=== PATIENT | male | born 1930 | race Caucasian/White ===

== ENCOUNTER 2016-06-29 11:45 | Inpatient (IN) | payer MEDICARE ==
[2016-06-29 12:24] LABS: Hematocrit 44 % (42-52); Hemoglobin 15.1 g/dl (14.0-18.0); Mean Corpuscular HGB Conc 34 g/dl (31-36); Mean Corpuscular Hemoglobin 34 pg (27-31); Mean Corpuscular Volume 99 fL (80-94); Mean Platelet Volume 7 um3 (7.4-10.4); Red Blood Count 4.44 10^6/ul (4.0-5.4); Red Cell Distribution Width 14 % (10.5-15); White Blood Count 9.6 10^3/ul (3.5-10.8)
[2016-06-29 12:41] LABS: Albumin 4.2 g/dL (3.2-5.2); BUN/Creatinine Ratio 17.6 (8-20); Calcium 9.7 mg/dL (8.6-10.3); EGFR African American 83.2 (>60); EGFR Non-African American 64.7 (>60); Globulin 3.4 g/dL (2-4); Potassium 4.4 mmol/L (3.5-5.0); Total Bilirubin 1.7 mg/dL (0.2-1.0); Total Protein 7.6 g/dL (6.4-8.9)
[2016-06-29 12:43] LABS: Troponin I 0.01 ng/mL (<0.04)
--- NOTE | 2016-06-29 13:57 | RAD ---
Indication: Fall. Chest injury. Single view of the chest demonstrates patient to be status post transsternal thoracotomy. Lung best demonstrate no pleural fluid, pneumonia or pneumothorax. When compared to previous exam of August 08, 2015 postoperative changes are new. The lung best are unchanged. IMPRESSION: No active cardiopulmonary disease is noted.
--- NOTE | 2016-06-29 13:59 | RAD ---
Indication: Fall, right hip pain. 2 views of the right hip and an AP view the pelvis demonstrates a fracture through the neck of the right femoral neck. Overriding of the fracture fragment is noted. Pelvic ring is otherwise intact. IMPRESSION: Impacted fracture right femoral neck.
[2016-06-29 14:35] LABS: Urine Bacteria Absent (Absent); Urine Bilirubin Negative (Negative); Urine Glucose Negative (Negative); Urine Nitrite Negative (Negative)
--- NOTE | 2016-06-29 14:58 | PN ---
Progress Note - Progress Note Note: Full note dictated. Right displaced femoral neck fracture. He is 85 and walks with a walker for the last 6 months. He takes Xarelto for A fib. We have to wait at least 24 hours for the Xarelto to clear his system. We will arrange for right hip hemiarthroplasty or total hip arthroplasty once cleared medically.
[2016-06-29] MEDS: Sotalol TAB* 80 MG PO SCH (17:37)
[2016-06-29] MEDS ORDERED: Latanoprost 0.005%* 2.5 ml BTL BOTH EYES SCH (18:00)
--- NOTE | 2016-06-29 18:03 | ED ---
Mandeep Mehta Michael, scribed for Bigg Hernadez MD on 06/29/16 at 1222 . Adult Trauma - HPI Summary HPI Summary: 85 y/o male comes to the ED presenting with right hip pain after slipping on ice while brushing the snow off his car today at 0945. The pt reports that he fell on his right hip and was unable to get up after the fall because the pain was so severe. Currently at the ED, the pt rates the pain a 2 out of 10 without movement. With movement, the pain is rated a 4 out of 10 on a pain severity scale. The right hip pain does not radiate. The pt denies head pain, neck pain, and LOC. The PMHx is significant for GERD, HTN, and A-fib. - History of Current Complaint Chief Complaint: EDExtremityLower Stated Complaint: FALL Time Seen by Provider: 06/29/16 11:51 Hx Obtained From: Patient, Medical Records Mechanism of Injury: Fall Loss of Consciousness: no loss of consciousness Onset/Duration: Started Hours Ago, Still Present Onset of Pain: Immediate Onset Severity: Moderate Current Severity: Mild Pain Intensity: 1 Pain Scale Used: 0-10 Numeric Location: Extremities - right hip pain Aggravating Factor(s): Movement Associated Signs & Symptoms: Positive: Negative. Negative: Loss of Consciousness - head and neck trauma - Additional Pertinent History Primary Care Physician: DIVYA - Allergy/Home Medications Allergies/Adverse Reactions: Allergies Allergy/AdvReac Type Severity Reaction Status Date / Time Tetracyclines & Related Allergy Unknown Verified 06/29/16 14:19 Reaction Details Home Medications: Home Medications Bimatoprost 0.01% OPHTH (NF) [Lumigan 0.01% OPHTH (NF)] 1 drop BOTH EYES QPM 04/05 [History Confirmed 06/29/16] Sotalol TAB* [Betapace 80 MG TAB*] 40 mg PO BID 06/29/16 [History Confirmed 04/05] PMH/Surg Hx/FS Hx/Imm Hx Endocrine/Hematology History: Reports: Other Endocrine/Hematological Disorders - Pt reports Hx of Rheumatoid arthritis for two years, then dismissed Cardiovascular History: Reports: Hx Atrial Fibrillation, Hx Congestive Heart Failure, Hx Hypertension - on meds Respiratory History: Reports: Hx Pneumonia - 5 years ago Denies: Hx Asthma, Hx Chronic Obstructive Pulmonary Disease (COPD) GI History: Reports: Hx Gastroesophageal Reflux Disease History: Reports: Other Problems/Disorders - BPH Musculoskeletal History: Reports: Hx Orthopedic Injury - R ankle Sensory History: Reports: Hx Contacts or Glasses, Hx Glaucoma Opthamlomology History: Reports: Hx Contacts or Glasses, Hx Glaucoma - Surgical History Surgery Procedure, Year, and Place: "Kidney lesions removed when I was very young", bilateral carpal tunnel, arthroscopy, tonsillectomy, dental surgeries Hx Anesthesia Reactions: No Infectious Disease History: No Infectious Disease History: Denies: Traveled Outside the [place] in Last 30 Days - Family History Known Family History: Positive: None Family History: pt denies significant FHx - Social History Occupation: Retired Lives: With Family Alcohol Use: None Substance Use Type: Reports: None Smoking Status (MU): Never Smoked Tobacco Review of Systems Negative: Fever Positive: Other - right hip pain Negative: Syncope All Other Systems Reviewed And Are Negative: Yes Physical Exam - Summary Physical Exam Summary: Vital signs: reviewed General: Patient is comfortable lying in stretcher with no signs of distress HEENT: within normal limits Lungs: CTA B/L CVS: S1 & S2 present. No murmurs appreciated. ABDOMEN: Soft, non-tender. No signs of distention. No rebound no guarding, and no masses palpated. Bowel sounds are normal. EXTREMITIES: Decrease ROM of right hip secondary to pain, good pulses and capillary refill. NEURO: Alert and oriented x 3. No acute neurological deficits. Speech is normal and follows commands. SKIN: Dry and warm Triage Information Reviewed: Yes Vital Signs On Initial Exam: Initial Vitals Temp Pulse Resp BP Pulse Ox 97.7 F 69 16 160/82 94 06/29/16 11:46 06/29/16 11:46 06/29/16 11:46 06/29/16 11:46 06/29/16 11:46 Vital Signs Reviewed: Yes Diagnostics - Vital Signs Vital Signs Temp Pulse Resp BP Pulse Ox 06/29/16 11:46 97.7 F 69 16 160/82 94 - Laboratory Result Diagrams: 06/29/16 12:14 06/29/16 12:14 Lab Statement: Any lab studies that have been ordered have been reviewed, and results considered in the medical decision making process. - Radiology CXR Xray Interpretation: No Acute Changes Radiology Interpretation Completed By: Radiologist Right hip/pelvis XR Xray Interpretation: Positive (See Comments) - compacted fracture right femoral neck Radiology Interpretation Completed By: Radiologist - EKG EK EKG Rhythm: Sinus Rhythm - 84 bpm EKG Interpretation: no st elevation EKG 1248 EKG Rhythm: Sinus Rhythm EKG Interpretation: no st elevation Adult Trauma Course/Dx - Course Course Of Treatment: 85 y/o male comes to the ED presenting with right hip pain after slipping on ice while brushing the snow off his car today at 0945. The pt reports that he fell on his right hip and was unable to get up after the fall because the pain was so severe. Currently at the ED, the pt rates the pain a 2 out of 10 without movement. With movement, the pain is rated a 4 out of 10 on a pain severity scale. The right hip pain does not radiate. The pt denies head pain, neck pain, and LOC. The PMHx is significant for GERD, HTN, and A-fib. Blood work is within normal limits and showed INR 1.22 and sodium 127. The XR of the right hip and pelvis shows right femoral neck fracture. CXR shows no active cardiopulmonary disease. The EKG shows NSR with no st elevation. The patient has become comfortable with no pain due to medication. Dr. Monroy ( orthopedics) was contacted and Dr. Monroy will consult the patient. Dr. Varner (Hospitalist) was consulted and accepts the patient to the hospital. - Diagnoses Differential Diagnosis/HQI/PQRI: Positive: Fracture, Laceration(s), Sprain, Strain Provider Diagnoses: Fracture of femoral neck, right Discharge - Discharge Plan Condition: Stable Disposition: ADMITTED TO [facility] Discharge Disposition Comment: Dr. Varner accepts the patient as an admission The documentation as recorded by the Mandeep trevino Michael accurately reflects the service I personally performed and the decisions made by me, Bigg Hernadez MD.
[2016-06-29] MEDS: Acetaminophen TAB* 325 MG PO SCH (20:46)
[2016-06-29] MEDS: PRESERVISION AREDS PO SCH (20:46)
[2016-06-29] MEDS: PTO:Bimatoprost 0.01% OPHTH (NF) 2.5 ML BTL BOTH EYES SCH (20:47)
[2016-06-29] MEDS ORDERED: Omeprazole CAP* 20 MG PO SCH (21:00)
[2016-06-29] MEDS: Heparin VIAL(*) 5000 UNITS/ML VIAL (FIVE THOUSAND) SUBCUT SCH (21:52)
[2016-06-29] MEDS: oxyCODONE TAB* 5 MG TAB PO PRN (21:56)
--- NOTE | 2016-06-29 22:12 | HP ---
HOSPITAL MEDICINE HISTORY AND PHYSICAL: DATE OF ADMISSION: 06/29/16 PRIMARY CARE PHYSICIAN: Dr. Luis. ATTENDING PHYSICIAN: Dr. Bharath Varner* (dictation provided by Yanira Corey NP) . CHIEF COMPLAINT: Fall with right hip pain. HISTORY OF PRESENT ILLNESS: Mr. Rodríguez is an 85-year-old male with a past medical history of AFib/flutter with aortic stenosis, status post aortic valve replacement in August of last year as well as osteoarthritis who presents today to the hospital with concern for right hip pain after a fall. The patient states that he was out brushing the snow off the car when he slipped on ice on his right hip and had severe pain. He called his son who came to get him. He was able to get him into the car and arrived in to the emergency room. Mr. Rodríguez states that prior to this fall, he had been in his normal state of health. He has had no acute complaints other than problems with arthritis and intermittent pain in his joints. He denies fevers, chills, chest pain, shortness of breath, cough, nausea, vomiting, or diarrhea. In the emergency room, Mr. Rodríguez was confirmed to have an impacted fracture of the right femoral neck. His lab values are essentially unremarkable with a chronic hyponatremia, was essentially unchanged. PAST MEDICAL HISTORY: 1. Atrial fibrillation/flutter. 2. Aortic stenosis, status post aortic valve replacement in August 2015, bioprosthetic valve. 3. Osteoarthritis. 4. Previous question of rheumatoid arthritis, ruled out. 5. Hypertension. 6. Surgery for kidney adhesions decades ago. MEDICATIONS: 1. Bimatoprost 0.01% ophthalmically both eyes q.p.m. 2. Diltiazem 240 mg p.o. daily. 3. Furosemide 20 mg p.o. daily. 4. Potassium chloride 10 mEq p.o. daily. 5. Rivaroxaban 15 mg p.o. daily. 6. Zoloft 40 mg p.o. b.i.d. ALLERGIES: TETRACYCLINES and related. FAMILY HISTORY: No report of coronary artery disease, diabetes, or cancer in the family. He does have a daughter who has diabetes, but he states that that runs in the 's side of the family. SOCIAL HISTORY: No report of tobacco or drug use. The patient states he drinks wine occasionally. 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 He is . He has 4 children. His healthcare proxy would be his son, Bakari Rodríguez. REVIEW OF SYSTEMS: The patient reports having upper respiratory infection about a week ago, but states he is completely recovered from that. He does have chronic pain in his shoulders and ankles from arthritis, but a 14-point review of systems was otherwise performed and all those not mentioned were negative. PHYSICAL EXAMINATION GENERAL: Mr. Rodríguez is lying in the bed. He is in no acute distress. He is calm and cooperative with my examination. VITAL SIGNS: Temperature 97.8, pulse rate 82, respiratory rate 20, O2 saturation 93% on room air, blood pressure 162/71. LUNGS: Clear to auscultation bilaterally with no accessory muscle use and good aeration. HEART: S1, S2. No murmur, rub, or gallop and regular. ABDOMEN: Soft, nontender with bowel sounds positive x4. EXTREMITIES: No cyanosis or edema. NEUROLOGIC: He is alert and oriented x3. He moves all extremities equally. There is no facial asymmetry or focal weakness. Extraocular movements are intact. SKIN: Intact. LABORATORY DATA AND DIAGNOSTIC STUDIES: WBC 9.6, hemoglobin 15.1, hematocrit 44, platelet count 134. INR 1.22. Sodium 127, potassium 4.4, chloride 91, serum bicarbonate 29, BUN 19, creatinine 1.08, glucose 82. Troponin 0.01. Urine shows no evidence of infection. Hip pelvis x-ray is as read as above and chest x-ray shows the following: "No active cardiopulmonary disease is noted." ASSESSMENT: Mr. Rodríguez is an 85-year-old male with a past medical history of atrial fibrillation with aortic stenosis and valve replacement with a bioprosthetic valve in August 2015 who presents today to the hospital with concern for right hip fracture after a mechanical fall. Our plan is as follows: 1. Right hip fracture: Management will be per Orthopedics. Dr. Monroy has been consulted. The patient is on Xarelto and will need at least 24 hours before he could go to the OR after being off Xarelto. According to Dr. Monroy, the patient may go to the OR as late as Thursday. Family indicates that they are considering asking to have Dr. Ramirez do the surgery as they were very happy with the surgery that she did for the patient's . I told them that they need to make sure to let the orthopedic team know that as soon as possible if that is their decision. In terms of cardiac risk stratification, according to the revised cardiac risk index for preoperative risk assessment, the patient has no risk factors and is 0.4% risk of major cardiac event. The patient states he is able to obtain 4 METS of activity, i.e., going about flight of stairs with carrying a bag of groceries without chest pain or shortness of breath. He says overall his activity is limited by arthritis and he gets around with a cane. The patient had a recent echocardiogram through Dr. Nick 's office and actually had cardiac catheterization in August prior to his aortic valve surgery. The patient states there was no significant coronary artery disease identified and no stent placed. From my perspective, the patient has no indication for further cardiac testing. 2. Atrial fibrillation/flutter: Plan to continue sotalol. Plan to hold Xarelto. Continue diltiazem. 3. Hypertension: Continue with diltiazem, furosemide, and potassium supplementation. 4. DVT prophylaxis with heparin subcu. 5. Code status is full code and this was reviewed with the patient at the bedside. 6. Disposition to surgical floor. TIME SPENT: Approximately 60 minutes were spent on the admission of this patient, more than half time spent with him at the bedside reviewing the events leading up to this hospitalization, performing the physical examination, and reviewing my plan of care. YANIRA COREY NP CC: Dr. Luis * [id number]/[facility] #: [id number] DAVID
[2016-06-30] MEDS: Heparin VIAL(*) 5000 UNITS/ML VIAL (FIVE THOUSAND) SUBCUT SCH ×2 (06:10→14:00)
--- NOTE | 2016-06-30 07:00 | PN ---
Progress Note - Progress Note Note: No changes. Surgery possibly tomorrow
[2016-06-30] MEDS: oxyCODONE TAB* 5 MG TAB PO PRN (07:09)
[2016-06-30] MEDS: Acetaminophen TAB* 325 MG PO SCH ×2 (07:10→21:14)
[2016-06-30 07:15] LABS: BUN/Creatinine Ratio 20.5 (8-20); Calcium 9.1 mg/dL (8.6-10.3); EGFR African American 105.4 (>60); EGFR Non-African American 81.9 (>60); Potassium 4.1 mmol/L (3.5-5.0)
[2016-06-30] MEDS: Sotalol TAB* 80 MG PO SCH ×2 (08:44→17:01)
[2016-06-30] MEDS: Potassium Chlor TAB* 10 MEQ TAB.ER PO SCH (08:45)
[2016-06-30] MEDS: Furosemide TAB* 20 MG PO SCH (08:45)
[2016-06-30] MEDS: Diltiazem CD CAP* 240 MG PO SCH (08:46)
[2016-06-30] MEDS: PRESERVISION AREDS PO SCH ×2 (08:46→21:14)
[2016-06-30] MEDS ORDERED: Ferrous Sulfate TAB* 325 MG PO SCH (09:00)
[2016-06-30] MEDS ORDERED: Rivaroxaban TAB(*) 15 MG PO SCH (09:00)
[2016-06-30] MEDS ORDERED: Amiodarone TAB* 200 MG PO SCH (09:00)
--- NOTE | 2016-06-30 09:17 | CONS ---
CONSULTATION REPORT: DATE OF CONSULT: 06/29/16 CHIEF COMPLAINT: Right hip fracture. HISTORY OF PRESENT ILLNESS: Mr. López is an 85-year-old male who has AFib and aflutter, is status post aortic valve replacement in August of last year. He had a mechanical fall when he was brushing the snow off his car and fractured his right hip on 06/29/16. I was consulted for the right hip fracture. Prior to the fall, he has been walking with a walker for the last 6 months. He states he just is a little bit more steady on his feet with the walker. He states he could use a cane. He says he gets some soreness in the right hip and has some pain in the left hip. PAST MEDICAL HISTORY: 1. AFib/flutter. 2. Aortic stenosis, status post aortic valve replacement in August 2015 with a bioprosthetic valve. 3. Osteoarthritis. 4. Hypertension. 5. Status post kidney surgery. MEDICATIONS: 1. Bimatoprost. 2. Diltiazem. 3. Furosemide. 4. Potassium chloride. 6. Rivaroxaban. 7. Zoloft. ALLERGIES: TETRACYCLINES. FAMILY HISTORY: Noncontributory. SOCIAL HISTORY: He does not smoke. He drinks an occasional glass of wine. 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 He lives independently. REVIEW OF SYSTEMS: He had an upper respiratory infection about a week ago and has new onset of right hip pain as well as some bilateral hip soreness prior to the fall. He has chronic pain in his shoulders and ankles. Otherwise a full 14 -point review of systems was conducted and was negative. PHYSICAL EXAM: General: Awake, alert, and oriented. Psych: Mood and affect are normal. HEENT: Normocephalic, atraumatic. Normal facies. Neck: Supple. Good range of motion. Abdomen: Soft and nondistended. Neurological: He has intact neurological function distally on the affected right leg. Neurological exam is grossly normal. Skin: Intact. No bleeding about the fracture site whatsoever. Extremities: The right lower extremity is shortened and externally rotated. Secondary survey of the other arms and other leg show no significant discomfort. The pelvis is stable. The knee and ankle on the right leg are without significant abnormality. DIAGNOSTIC STUDIES/LAB DATA: Imaging: X-rays show a displaced right femoral neck fracture that is in varus. H and H is 15 and 44, INR is 121.22. Sodium is 127, creatinine is 1.08. IMPRESSION: Right displaced femoral neck fracture. PLAN: His Xarelto is being held. We will plan for operative treatment for the fracture in the form of either a right hip hemiarthroplasty or a total hip arthroplasty. We will wait a little bit more time just to have the Xarelto wear off a bit more, and then we will proceed with surgery, either myself or one of my partners. [id number]/[facility] #: [id number] MTDD
--- NOTE | 2016-06-30 09:24 | PN ---
Subjective Date of Service: 06/30/16 Interval History: Patient seen and examined at bedside. He reports having no pain and feels "dopey " from his oxycodone. He denies CP, SOB, abd pain, n/v. He is hopeful to have surgery tomorrow. No other complaints at this time. Family History: Unchanged from Admission Social History: Unchanged from Admission Past Medical History: Unchanged from Admission Objective Active Medications: Acetaminophen (Tylenol Tab*) 975 mg PO BID [facility] Last Admin: 06/30/16 07:10 Dose: 650 mg Bimatoprost (Lumigan 0.01% Ophth (Nf)) 1 drop BOTH EYES QPM [facility] Last Admin: 06/29/16 20:47 Dose: 1 drop Diltiazem HCl (Cardizem Cd Cap*) 240 mg PO DAILY [facility] Last Admin: 06/30/16 08:46 Dose: 240 mg Furosemide (Lasix Tab*) 20 mg PO DAILY [facility] Last Admin: 06/30/16 08:45 Dose: 20 mg Heparin Sodium (Porcine) (Heparin Vial(*)) 5,000 units SUBCUT Q8HR [facility] Last Admin: 06/30/16 06:10 Dose: 5,000 units Multivitamins/Minerals (Preservision Areds(Multivitamins/Mineral)(Nf)) 1 cap PO BID [facility] Last Admin: 06/30/16 08:46 Dose: 1 cap Oxycodone HCl (Roxycodone Tab*) 5 mg PO Q4H PRN PRN Reason: PAIN Last Admin: 06/30/16 07:09 Dose: 5 mg Potassium Chloride (Klor Con Er Tab*) 10 meq PO DAILY [facility] Last Admin: 06/30/16 08:45 Dose: 10 meq Sotalol HCl (Betapace Tab*) 40 mg PO 0900,1700 [facility] Last Admin: 06/30/16 08:44 Dose: 40 mg Tramadol HCl (Ultram*) 100 mg PO Q6H PRN PRN Reason: PAIN Vital Signs 06/29/16 06/29/16 06/29/16 14:28 14:30 16:10 Temperature 99.0 F Pulse Rate 50 83 89 Respiratory 16 14 16 Rate Blood Pressure 152/81 149/74 132/78 (mmHg) O2 Sat by Pulse 90 96 Oximetry 06/29/16 06/29/16 06/29/16 16:15 16:23 16:46 Temperature 97.8 F 97.8 F Pulse Rate 82 82 Respiratory 20 20 20 Rate Blood Pressure 162/71 162/71 (mmHg) O2 Sat by Pulse 93 93 Oximetry 06/29/16 06/29/16 06/29/16 19:20 19:48 21:56 Temperature 97.8 F Pulse Rate 82 Respiratory 20 20 20 Rate Blood Pressure 145/76 (mmHg) O2 Sat by Pulse 97 Oximetry 06/29/16 06/30/16 06/30/16 23:56 00:25 03:40 Temperature 97.6 F 97.9 F Pulse Rate 77 82 Respiratory 20 16 16 Rate Blood Pressure 112/57 125/65 (mmHg) O2 Sat by Pulse 94 93 Oximetry 06/30/16 06/30/16 06/30/16 07:09 07:24 08:00 Temperature 98.0 F Pulse Rate 67 Respiratory 16 17 18 Rate Blood Pressure 142/72 (mmHg) O2 Sat by Pulse 94 Oximetry Oxygen Devices in Use Now: None Appearance: Older male patient, lying in bed, in NAD Eyes: PERRLA Ears/Nose/Mouth/Throat: Clear Oropharnyx, Mucous Membranes Moist Neck: NL Appearance and Movements; NL JVP Respiratory: Symmetrical Chest Expansion and Respiratory Effort, Clear to Auscultation Cardiovascular: NL Sounds; No Murmurs; No JVD, RRR Abdominal: NL Sounds; No Tenderness; No Distention Extremities: No Edema, - - distal pulses intact bilterally with good movement/ sensation Skin: No Rash or Ulcers Neurological: Alert and Oriented x 3 Lines/Tubes/Other Access: Clean, Dry and Intact Peripheral IV Nutrition: Taking PO's Result Diagrams: 06/29/16 12:14 06/30/16 06:39 Assess/Plan/Problems-Billing Assessment: Mr. Rodríguez is an 85 yo male with a PMH of atrial fibrillation, s/p bioprosthetic aortic valve replacement, OA, and HTN who presented to the ED on s/p fall and subsequent right hip fracture. - Patient Problems (1) Fracture of femoral neck, right Code(s): S72.001A - FRACTURE OF UNSP PART OF NECK OF RIGHT FEMUR, INIT Comment : Potential surgery tomorrow per ortho notes Pre-operative risk analysis in H&P Continue DVT prophylaxis and encourage IS Pain management (2) Atrial fibrillation Code(s): I48.91 - UNSPECIFIED ATRIAL FIBRILLATION Comment: Continue sotalol and diltiazem. Hold Xarelto in anticipation of surgery. (3) Hypertension Code(s): I10 - ESSENTIAL (PRIMARY) HYPERTENSION Comment: Continue diltiazem, furosemide, and K+ replacement. (4) S/P aortic valve replacement Code(s): Z95.2 - PRESENCE OF PROSTHETIC HEART VALVE Comment: In August 2015 (5) DVT prophylaxis Code(s): EPH0868 - Comment: SQ heparin Status and Disposition: Inpatient admission. Anticipate LOS >2 days.
[2016-06-30] MEDS ORDERED: NS 0.9% 1000 ML* 1,000 ML IV SCH (15:30)
[2016-06-30 15:46] LABS: Hematocrit 42 % (42-52); Hemoglobin 14.2 g/dl (14.0-18.0)
[2016-06-30 15:47] LABS: Comments Flag Yes
[2016-06-30] MEDS: PTO:Bimatoprost 0.01% OPHTH (NF) 2.5 ML BTL BOTH EYES SCH (17:01)
[2016-06-30] MEDS: traMADol TAB* 50 MG PO PRN ×2 (19:06→19:09)
[2016-06-30] MEDS ORDERED: Buffered Lidocaine 1% SYR 3ML* 3 ML/SYR SYRINGE INTRADERM ONE (21:25)
[2016-07-01] MEDS: traMADol TAB* 50 MG PO PRN (03:23)
[2016-07-01 07:04] LABS: BUN/Creatinine Ratio 20.8 (8-20); Calcium 8.4 mg/dL (8.6-10.3); EGFR African American 132.8 (>60); EGFR Non-African American 103.3 (>60); Potassium 3.8 mmol/L (3.5-5.0)
[2016-07-01] MEDS: Sotalol TAB* 80 MG PO SCH ×2 (08:41→17:30)
[2016-07-01] MEDS: Diltiazem CD CAP* 240 MG PO SCH (08:42)
[2016-07-01] MEDS: PRESERVISION AREDS PO SCH ×2 (08:43→21:30)
[2016-07-01] MEDS: Potassium Chlor TAB* 10 MEQ TAB.ER PO SCH (08:43)
--- NOTE | 2016-07-01 09:10 | PN ---
Subjective Date of Service: 07/01/16 Interval History: Pt is seen in pre op area. no complaints. Ready for surgery Family History: Unchanged from Admission Social History: Unchanged from Admission Past Medical History: Unchanged from Admission Objective Active Medications: Acetaminophen (Tylenol Tab*) 975 mg PO BID [facility] Last Admin: 06/30/16 21:14 Dose: 975 mg Bimatoprost (Lumigan 0.01% Ophth (Nf)) 1 drop BOTH EYES QPM [facility] Last Admin: 06/30/16 17:01 Dose: 1 drop Diltiazem HCl (Cardizem Cd Cap*) 240 mg PO DAILY [facility] Last Admin: 07/01/16 08:42 Dose: 240 mg Furosemide (Lasix Tab*) 20 mg PO DAILY [facility] Last Admin: 06/30/16 08:45 Dose: 20 mg Lactated Ringer's (Lactated Ringers 1000 Ml Bag*) 1,000 mls @ 125 mls/hr IV PER RATE [facility] Last Admin: 07/01/16 05:15 Dose: 125 mls/hr Multivitamins/Minerals (Preservision Areds(Multivitamins/Mineral)(Nf)) 1 cap PO BID [facility] Last Admin: 07/01/16 08:43 Dose: 1 cap Oxycodone HCl (Roxycodone Tab*) 5 mg PO Q4H PRN PRN Reason: PAIN Last Admin: 06/30/16 07:09 Dose: 5 mg Potassium Chloride (Klor Con Er Tab*) 10 meq PO DAILY [facility] Last Admin: 07/01/16 08:43 Dose: 10 meq Sotalol HCl (Betapace Tab*) 40 mg PO 0900,1700 [facility] Last Admin: 07/01/16 08:41 Dose: 40 mg Tramadol HCl (Ultram*) 100 mg PO Q6H PRN PRN Reason: PAIN Last Admin: 07/01/16 03:23 Dose: 50 mg Vital Signs 06/30/16 06/30/16 06/30/16 09:09 11:44 15:28 Temperature 97.6 F 99.1 F Pulse Rate 79 85 Respiratory 16 17 16 Rate Blood Pressure 122/52 153/77 (mmHg) O2 Sat by Pulse 95 94 Oximetry 06/30/16 06/30/16 06/30/16 19:09 19:25 20:00 Temperature 98.9 F Pulse Rate 92 Respiratory 16 20 20 Rate Blood Pressure 139/68 (mmHg) O2 Sat by Pulse 93 Oximetry 06/30/16 07/01/16 07/01/16 21:09 00:08 03:23 Temperature 98.4 F 98.1 F Pulse Rate 78 74 Respiratory 20 16 16 Rate Blood Pressure 129/55 117/55 (mmHg) O2 Sat by Pulse 93 94 Oximetry 07/01/16 07/01/16 05:23 07:26 Temperature 98.0 F Pulse Rate 74 Respiratory 16 18 Rate Blood Pressure 134/63 (mmHg) O2 Sat by Pulse 94 Oximetry Oxygen Devices in Use Now: None Appearance: 85 yo M in NAD, AAOx3 Eyes: No Scleral Icterus, PERRLA Ears/Nose/Mouth/Throat: NL Teeth, Lips, Gums, Mucous Membranes Moist Neck: NL Appearance and Movements; NL JVP, Trachea Midline Respiratory: Symmetrical Chest Expansion and Respiratory Effort, Clear to Auscultation Cardiovascular: NL Sounds; No Murmurs; No JVD, RRR Abdominal: NL Sounds; No Tenderness; No Distention, No Hepatosplenomegaly Lymphatic: No Cervical Adenopathy Extremities: No Edema, No Clubbing, Cyanosis Skin: No Rash or Ulcers, No Nodules or Sclerosis Neurological: Alert and Oriented x 3, NL Muscle Strength and Tone Result Diagrams: 06/30/16 15:40 07/01/16 05:52 Assess/Plan/Problems-Billing Assessment: Mr. Rodríguez is an 85 yo male with a PMH of atrial fibrillation, s/p bioprosthetic aortic valve replacement, OA, and HTN who presented to the ED on s/p fall and subsequent right hip fracture. - Patient Problems (1) Fracture of femoral neck, right Comment: Pre-operative risk analysis in H&P. Pt has good exercise tolerance. Echo from 02/2016 shows EF 55%, post op septal wall abn, , mild LVH, bioprosthetic valve functioning normally.He is an acceptable candidate for the anticipated surgery. Cont Sotalol/Cardizem preop. Hold furosemide preop. D/w Dr. Castaneda (2) Hyponatremia Comment: chronic dating back to 2013, at baseline (3) Atrial fibrillation Comment: Post op valve replacement last year. now in NSR Continue sotalol and diltiazem. Hold Xarelto prior to surgery. May need to be on telem post op (4) Hypertension Comment: Controlled, continue diltiazem (5) S/P aortic valve replacement Comment: In August 2015, valve functioning normally on Echo 02/2016 (6) DVT prophylaxis Comment: anticoagulants held preop Status and Disposition: Inpatient admission. Anticipate LOS >2 days.
[2016-07-01] MEDS: Furosemide TAB* 20 MG PO SCH (09:30)
[2016-07-01] MEDS: Acetaminophen TAB* 325 MG PO SCH ×2 (09:30→21:30)
[2016-07-01] MEDS ORDERED: Famotidine IV* 10 MG/ML 2 ML (20 mg) ONE (10:13)
[2016-07-01] MEDS ORDERED: Midazolam* 1 MG/ML 2 ML VIAL (2 MG) ONE ×3 (10:13→13:01)
[2016-07-01] MEDS ORDERED: fentaNYL* 50 MCG/ML 2 ML VIAL (100 MCG VIAL) ONE (10:13)
[2016-07-01] MEDS ORDERED: ceFAZolin 2 GM PREMIX (*) 2 GM/50 ML BAG IVPB ONE (10:43)
[2016-07-01] MEDS ORDERED: Morphine PF AMP (0.5MG/ML)* 5 MG/10 ML AMP ONE (11:16)
[2016-07-01] MEDS ORDERED: KETAMINE HCL* 50 MG/ML 10 ML VIAL ONE (11:18)
[2016-07-01] MEDS ORDERED: Phenylephrine IV* 40 MCG/ML 10 ML SYRINGE ONE (11:39)
[2016-07-01] MEDS ORDERED: fentaNYL* 50 MCG/ML 2 ML VIAL (100 MCG VIAL) IV PRN (12:19)
[2016-07-01] MEDS ORDERED: DiMENhydriNATE IV* 50 MG/ML VIAL IV PUSH PRN (12:19)
[2016-07-01] MEDS ORDERED: diPHENhydraMINE IV* 50 MG/ML 1 ml VIAL (BENADRYL) ONE (12:29)
[2016-07-01] MEDS ORDERED: Bupivacaine 0.5% SDV PF* 30 ML VIAL ONE (12:29)
[2016-07-01] MEDS ORDERED: Dexamethasone IV* 4 MG/ML 1 ML (4 MG) ONE (12:29)
[2016-07-01] MEDS ORDERED: Phenylephrine INJ* 10 MG/ML 1 ML VIAL (10 MG) ONE (12:29)
[2016-07-01] MEDS ORDERED: Ondansetron INJ* 2 MG/ML VIAL IV PRN ×2 (12:44→13:33)
[2016-07-01] MEDS ORDERED: oxyCODONE TAB* 5 MG TAB PO PRN ×2 (12:44→13:33)
[2016-07-01] MEDS ORDERED: PROCHLORPERAZINE INJ 5 MG/ML 2 ML VIAL IV PRN (12:44)
[2016-07-01] MEDS ORDERED: Naloxone* 0.4 MG/ML 1 ML VIAL IV PRN (12:44)
[2016-07-01] MEDS ORDERED: diPHENhydraMINE IV* 50 MG/ML 1 ml VIAL (BENADRYL) IV PRN ×2 (12:44→13:33)
[2016-07-01] MEDS ORDERED: EPHEDrine (Pressors)* 50 MG/ML VIAL ONE (12:59)
[2016-07-01] MEDS ORDERED: Scopolamine 1.5 mg* PATCH TRANSDERM SCH (13:00)
[2016-07-01] MEDS ORDERED: Scopolamine PATCH Remove* 1 NOTE MISC PATCH OFF SCH (13:00)
[2016-07-01] MEDS ORDERED: Acetaminophen TAB* 325 MG PO PRN (13:27)
[2016-07-01] MEDS ORDERED: Morphine INJ* 10 MG/ML 1 ML CARPUJECT IV PRN (13:33)
[2016-07-01] MEDS ORDERED: diPHENhydraMINE PO* 25 MG PO PRN (13:33)
[2016-07-01] MEDS ORDERED: Bisacodyl SUPP* 10 MG SUPP PR PRN (13:33)
[2016-07-01] MEDS ORDERED: Ondansetron TAB* 4 MG PO PRN (13:33)
[2016-07-01] MEDS ORDERED: oxyCODONE/Acetamin 5/325 MG* TAB PO PRN ×3 (13:33→13:40)
--- NOTE | 2016-07-01 14:19 | RAD ---
INDICATION: Status post total right hip replacement surgery. COMPARISON: Comparison is made with a prior x-ray study of the right hip from June 29, 2016. TECHNIQUE: An AP view of the pelvis was obtained. FINDINGS: The patient is status post total right hip replacement surgery. The bones and prostheses are in normal alignment. There is a small amount of air in the surrounding soft tissues consistent with the patient's recent surgery. Incidental note is made of moderate osteoarthritic change in the left hip. IMPRESSION: STATUS POST TOTAL RIGHT HIP PLACEMENT SURGERY.
[2016-07-01 17:02] LABS: Hematocrit 39 % (42-52); Hemoglobin 13.4 g/dl (14.0-18.0); Mean Corpuscular HGB Conc 34 g/dl (31-36); Mean Corpuscular Hemoglobin 34 pg (27-31); Mean Corpuscular Volume 99 fL (80-94); Mean Platelet Volume 8 um3 (7.4-10.4); Red Blood Count 3.97 10^6/ul (4.0-5.4); Red Cell Distribution Width 14 % (10.5-15)
[2016-07-01 17:03] LABS: Add Diff/Slide Review? Slide Review Added; Comments Flag Yes
[2016-07-01 17:12] LABS: EGFR African American 130.7 (>60); EGFR Non-African American 101.6 (>60)
[2016-07-01] MEDS: PTO:Bimatoprost 0.01% OPHTH (NF) 2.5 ML BTL BOTH EYES SCH (17:49)
[2016-07-01] MEDS: ceFAZolin 1 GM in Dextrose (*) 1 GM/50 ML BAG IVPB SCH (17:49)
[2016-07-01 20:45] LABS: Hematocrit 33 % (42-52); Hemoglobin 11.3 g/dl (14.0-18.0)
[2016-07-01 20:50] LABS: Comments Flag Yes
[2016-07-01] MEDS ORDERED: Heparin VIAL(*) 5000 UNITS/ML VIAL (FIVE THOUSAND) SUBCUT SCH (21:00)
[2016-07-01] MEDS: Docusate CAP* 100 MG PO SCH (21:30)
[2016-07-02] MEDS: ceFAZolin 1 GM in Dextrose (*) 1 GM/50 ML BAG IVPB SCH ×3 (00:28→12:41)
--- NOTE | 2016-07-02 04:11 | OP ---
CC: Dr. Luis OPERATIVE REPORT: DATE OF OPERATION: 07/01/16 DATE OF : [birth year] SURGICAL CARE: Right hip SURGEON: Brent Juarez MD ASSISTANTS: 1. HAZEL George, account management assistant. 2. HAZEL Valiente ANESTHESIOLOGIST: Dr. Ted Castaneda. ANESTHESIA: Spinal with Duramorph and IV sedation. PRE-OP DIAGNOSIS: Displaced right femoral neck fracture. POST-OP DIAGNOSIS: Displaced right femoral neck fracture. OPERATIVE PROCEDURE: Right total hip replacement. COMPLICATIONS: There were no complications. DRAINS: There were no drains. BLOOD LOSS: 300 mL. REPLACEMENT: Crystalloid fluid. INDICATIONS: Displaced femoral neck fracture. The surgical options of partial hip replacement, total hip replacement were reviewed with the patient and his family. Complications of each were also reviewed and we recommended and the patient elected to proceed with a hip replacement rather than a hemiarthroplasty , the main reason being more reliable pain relief. DESCRIPTION OF PROCEDURE: The patient was brought to the operating room and placed on the operating room table in a supine position, then into a sitting position for administration of the spinal anesthetic. Once this had been completed, he was returned to the supine position. A Day catheter was inserted. The patient was placed in the left lateral position. Downside, left axilla was padded. Downside, left leg was checked to see if there is no undue pressure on the peroneal nerve at the fibular head and neck. The patient was needed to be cleaned on the perineum and rectal region and this was carefully completed. The groin was then sealed off and the pelvis was secured over the ASIS and the sacrum with hip positioner, blankets were placed between the legs and the right hip and the right lower extremity and given a preliminary chlorhexidine prep in the region of the hip, and then a final ChloraPrep for the right hip to the foot. After prepping, draping, and carefully sealing off, we did our universal protocol time-out confirming Cassius Rodríguez and the plan for a right hip replacement. We all agreed and we proceeded. The incision went from the greater trochanter distally for an inch and a half to two inches and curving proximally and posteriorly towards the posterior iliac spine for 2.5 inches. Skin and subcu divided down to the deep fascia and the deep fascia was opened in line with the skin incision. Careful hemostasis checked and achieved throughout the case with electrocautery. The Charnley retractor was inserted. The trochanteric bursa was thickened and some of this was excised. The posterior border of the gluteus medius and minimus were then retracted anteriorly with a blunt Hohmann retractor and this exposed the piriformis tendon. The piriformis tendon was cut along its anterior superior margin down to the hip capsule and the piriformis was then released from its piriformis fossa insertion and the piriformis and the underlying capsular flap was marked with a #2 Surgidac suture. A second suture was placed in the conjoint tendon just inferior to the piriformis tendon. A careful posterior approach to the hip was then completed with careful hemostasis. The patient's comminuted displaced femoral neck fracture was obvious from this exposure. A drill was placed into the femoral head and then a corkscrew was placed in the femoral head. The femoral head was levered out without any difficulty leaving the comminuted femoral neck. The comminuted pieces were removed with a rongeur and then a smooth cut was made on the femoral neck about a fingerbreadth proximal to the lesser trochanter and this portion was also removed leaving a nice calcar and femoral neck for femoral component placement. The retraction for the acetabulum was done after removing the remaining labrum posteriorly, superiorly, and anteriorly with a sharp Hohmann anteriorly, sharp right Hohmann posteriorly, a blunt Hohmann inferiorly and superiorly. The acetabular soft tissues were excised after using a curette and the reaming was then done 46 through 52 in 1 mm increments. We had nice bleeding subchondral and cancellous bone. The acetabulum was cleaned several times with pulsed saline. A 52 mm cluster hole cup was impacted into position in 45 degrees of abduction and 20 degrees of anteversion with nice tight fit. The screw was placed superiorly and an elevated liner was placed posteriorly for a 52 cup and a 36 head. The acetabulum was then cleaned with pulsed saline and then a clean lap sponge was inserted. On the femoral side, we used a canal finder. Box osteotome, broaching was done 5 through 12.5. At 12.5, we had a nice tight fit. The broach was placed at15 to 20 degrees of anteversion. A trial reduction was done with a standard neck and a +0 head with good soft tissue tension, a negative push, pull in extension. No tendency towards levering with IR and ER. Hip extension was approximately neutral and looked like it would all allow extension of the hip. The hip was flexed to 90 degrees and then dislocation did not occur prior to 30 degrees of adduction and internal rotation. The 12.5 standard M/L taper component was then impacted into position in approximately 15 to 20 degrees of anteversion. A +0 36 mm Natoma chrome head was impacted into position on the clean and dried trunnion with nice fit. The hip was reduced. Hemostasis was checked and achieved throughout closure especially in the posterior tissues. I did not think drains were necessary. The piriformis and conjoint tendons were approximated through 2 drill holes to the posterior superior greater trochanter. The fascia matthew was closed with interrupted #1 Polysorb in [id number] fashion, the same with the fascia of the gluteus myrna. The deep and superficial subcu were closed with interrupted 0 and then 2-0 Polysorb on the superficial subcu, and then chinmay on the skin. Irrigation was done several times during closure with saline. Dressing was done after washing and drying over the chinmay with Betadine- soaked release, sterile gauze, and an ABD pads, and then paper tape. The patient was returned to the supine position in the hospital bed in the recovery room in stable and satisfactory condition having tolerated the procedure very well. The posterior tibial pulse and dorsal pedis pulses were present at the end of the case. The patient was having a tendency to externally rotate the leg , so we put a pillow under the knee and placed a roll blanket along the lateral thigh and knee to hold the toes more towards the ceiling rather than the externally rotated position. The patient returned to the recovery room in stable and satisfactory condition having tolerated the procedure very well. [id number]/CPS #: [id number] DAVID
[2016-07-02 06:18] LABS: Hematocrit 28 % (42-52); Hemoglobin 9.8 g/dl (14.0-18.0); Mean Corpuscular HGB Conc 35 g/dl (31-36); Mean Corpuscular Hemoglobin 34 pg (27-31); Mean Corpuscular Volume 98 fL (80-94); Mean Platelet Volume 9 um3 (7.4-10.4); Red Blood Count 2.89 10^6/ul (4.0-5.4); Red Cell Distribution Width 14 % (10.5-15); White Blood Count 9.6 10^3/ul (3.5-10.8)
[2016-07-02 06:20] LABS: Comments Flag Yes
[2016-07-02 06:32] LABS: BUN/Creatinine Ratio 21.7 (8-20); Blood Urea Nitrogen 15 mg/dL (6-24); CO2 Carbon Dioxide 25 mmol/L (22-32); Calcium 8.1 mg/dL (8.6-10.3); Chloride 94 mmol/L (101-111); EGFR African American 139.5 (>60); EGFR Non-African American 108.5 (>60); Glucose 123 mg/dL (70-100); Sodium 124 mmol/L (133-145)
[2016-07-02] MEDS: PRESERVISION AREDS PO SCH ×2 (09:32→21:44)
[2016-07-02] MEDS: Furosemide TAB* 20 MG PO SCH (09:32)
[2016-07-02] MEDS: Potassium Chlor TAB* 10 MEQ TAB.ER PO SCH (09:32)
[2016-07-02] MEDS: Heparin VIAL(*) 5000 UNITS/ML VIAL (FIVE THOUSAND) SUBCUT SCH ×2 (09:32→21:44)
[2016-07-02] MEDS: Docusate CAP* 100 MG PO SCH ×2 (09:33→21:43)
[2016-07-02] MEDS: Sotalol TAB* 80 MG PO SCH ×2 (09:33→17:07)
[2016-07-02] MEDS: Diltiazem CD CAP* 240 MG PO SCH (09:33)
[2016-07-02] MEDS: Acetaminophen TAB* 325 MG PO SCH ×2 (09:33→21:43)
--- NOTE | 2016-07-02 10:39 | PN ---
Subjective Date of Service: 07/02/16 Interval History: Pt feels well. Almost no post op pain. Family History: Unchanged from Admission Social History: Unchanged from Admission Past Medical History: Unchanged from Admission Objective Active Medications: Acetaminophen (Tylenol Tab*) 975 mg PO BID [facility] Last Admin: 07/02/16 09:33 Dose: Not Given Acetaminophen (Tylenol Tab*) 650 mg PO Q4H PRN PRN Reason: mild pain or fever Bimatoprost (Lumigan 0.01% Ophth (Nf)) 1 drop BOTH EYES QPM [facility] Last Admin: 07/01/16 17:49 Dose: 1 drop Bisacodyl (Dulcolax Supp*) 10 mg CA DAILY PRN PRN Reason: constipation Diltiazem HCl (Cardizem Cd Cap*) 240 mg PO DAILY [facility] Last Admin: 07/02/16 09:33 Dose: 240 mg Diphenhydramine HCl (Benadryl Iv*) 12.5 mg IV Q6H PRN PRN Reason: PRURITIS Diphenhydramine HCl (Benadryl Po*) 25 mg PO Q6H PRN PRN Reason: itching Docusate Sodium (Colace Cap*) 100 mg PO BID [facility] Last Admin: 07/02/16 09:33 Dose: 100 mg Furosemide (Lasix Tab*) 20 mg PO DAILY [facility] Last Admin: 07/02/16 09:32 Dose: 20 mg Heparin Sodium (Porcine) (Heparin Vial(*)) 5,000 units SUBCUT Q12HR [facility] Last Admin: 07/02/16 09:32 Dose: 5,000 units Cefazolin Sodium/Dextrose (Kefzol 1 Gm In Dextrose Duplex (*)) 1 gm in 50 mls @ 200 mls/hr IVPB Q6H [facility] Last Admin: 07/02/16 06:45 Dose: 200 mls/hr Morphine Sulfate (Morphine Inj (Syringe)*) 5 mg IV Q2H PRN PRN Reason: PAIN Multivitamins/Minerals (Preservision Areds(Multivitamins/Mineral)(Nf)) 1 cap PO BID [facility] Last Admin: 07/02/16 09:32 Dose: 1 cap Ondansetron HCl (Zofran Inj*) 4 mg IV Q6H PRN PRN Reason: nausea Ondansetron HCl (Zofran Tab*) 4 mg PO Q6H PRN PRN Reason: NAUSEA Oxycodone HCl (Roxycodone Tab*) 5 mg PO Q4H PRN PRN Reason: PAIN Last Admin: 06/30/16 07:09 Dose: 5 mg Oxycodone HCl (Roxycodone Tab*) 5 mg PO ONCE PRN PRN Reason: Moderate Pain Stop: 07/02/16 12:45 Oxycodone HCl (Roxycodone Tab*) 10 mg PO Q4H PRN PRN Reason: breakthrough pain Oxycodone/Acetaminophen (Percocet 5/325 Tab*) 2 tab PO Q3H PRN PRN Reason: PAIN - MODERATE Oxycodone/Acetaminophen (Percocet 5/325 Tab*) 1 tab PO Q3H PRN PRN Reason: moderate to severe pain Pharmacy Profile Note (Scopolomine Patch Remove*) 1 note PATCH OFF .AFTER 72 HOURS [facility] Stop: 07/04/16 12:46 Potassium Chloride (Klor Con Er Tab*) 10 meq PO DAILY [facility] Last Admin: 07/02/16 09:32 Dose: 10 meq Sotalol HCl (Betapace Tab*) 40 mg PO 0900,1700 [facility] Last Admin: 07/02/16 09:33 Dose: 40 mg Tramadol HCl (Ultram*) 100 mg PO Q6H PRN PRN Reason: PAIN Last Admin: 07/01/16 03:23 Dose: 50 mg Vital Signs 07/01/16 07/01/16 07/01/16 13:27 13:54 13:55 Temperature 98.2 F Pulse Rate 76 73 78 Respiratory 22 16 16 Rate Blood Pressure 143/67 133/67 131/62 (mmHg) O2 Sat by Pulse 98 98 98 Oximetry 07/01/16 07/01/16 07/01/16 14:00 14:05 14:15 Temperature Pulse Rate 73 72 74 Respiratory 16 16 16 Rate Blood Pressure 118/60 130/64 122/69 (mmHg) O2 Sat by Pulse 98 98 98 Oximetry 07/01/16 07/01/16 07/01/16 14:30 14:45 15:00 Temperature Pulse Rate 71 70 76 Respiratory 16 16 16 Rate Blood Pressure 132/60 131/64 127/55 (mmHg) O2 Sat by Pulse 99 100 99 Oximetry 07/01/16 07/01/16 07/01/16 15:15 15:33 15:45 Temperature 98.2 F 98.2 F Pulse Rate 73 70 73 Respiratory 12 16 17 Rate Blood Pressure 143/67 140/87 149/70 (mmHg) O2 Sat by Pulse 90 95 98 Oximetry 07/01/16 07/01/16 07/01/16 16:00 16:15 16:27 Temperature 98.2 F Pulse Rate 73 73 Respiratory 15 12 12 Rate Blood Pressure 116/77 116/76 (mmHg) O2 Sat by Pulse 98 97 Oximetry 07/01/16 07/01/16 07/01/16 16:45 16:52 16:59 Temperature Pulse Rate 74 73 Respiratory 12 13 Rate Blood Pressure 148/76 (mmHg) O2 Sat by Pulse 97 98 96 Oximetry 07/01/16 07/01/16 07/01/16 17:00 17:15 17:30 Temperature Pulse Rate 79 84 77 Respiratory 18 17 15 Rate Blood Pressure 171/153 144/74 134/89 (mmHg) O2 Sat by Pulse 98 96 98 Oximetry 07/01/16 07/01/16 07/01/16 17:45 18:00 18:15 Temperature Pulse Rate 80 80 80 Respiratory 18 16 20 Rate Blood Pressure 149/72 105/77 129/82 (mmHg) O2 Sat by Pulse 98 99 96 Oximetry 07/01/16 07/01/16 07/01/16 18:30 18:46 19:00 Temperature Pulse Rate 82 81 80 Respiratory 15 17 10 Rate Blood Pressure 137/99 125/62 117/56 (mmHg) O2 Sat by Pulse 92 95 94 Oximetry 07/01/16 07/01/16 07/01/16 19:21 19:30 19:44 Temperature Pulse Rate 78 82 Respiratory 14 14 Rate Blood Pressure 132/66 126/74 (mmHg) O2 Sat by Pulse 95 95 95 Oximetry 07/01/16 07/01/16 07/01/16 19:45 20:00 20:30 Temperature 98.5 F Pulse Rate 80 80 82 Respiratory 15 17 15 Rate Blood Pressure 126/70 127/64 (mmHg) O2 Sat by Pulse 95 96 98 Oximetry 07/01/16 07/01/16 07/01/16 21:00 21:30 22:00 Temperature Pulse Rate 78 78 78 Respiratory 13 18 16 Rate Blood Pressure 123/60 (mmHg) O2 Sat by Pulse 96 98 94 Oximetry 07/01/16 07/01/16 07/01/16 22:30 23:00 23:05 Temperature Pulse Rate 76 73 74 Respiratory 14 18 10 Rate Blood Pressure (mmHg) O2 Sat by Pulse 97 97 92 Oximetry 07/01/16 07/02/16 07/02/16 23:30 00:00 00:01 Temperature 97.1 F Pulse Rate 72 74 73 Respiratory 11 11 12 Rate Blood Pressure 97/54 (mmHg) O2 Sat by Pulse 93 91 91 Oximetry 07/02/16 07/02/16 07/02/16 00:30 01:00 01:30 Temperature Pulse Rate 74 72 71 Respiratory 16 11 15 Rate Blood Pressure (mmHg) O2 Sat by Pulse 96 96 97 Oximetry 07/02/16 07/02/16 07/02/16 02:00 02:30 03:00 Temperature Pulse Rate 72 69 71 Respiratory 12 13 13 Rate Blood Pressure 94/54 (mmHg) O2 Sat by Pulse 96 97 95 Oximetry 07/02/16 07/02/16 07/02/16 03:30 03:51 04:00 Temperature 98.0 F Pulse Rate 72 77 Respiratory 12 20 Rate Blood Pressure 102/65 (mmHg) O2 Sat by Pulse 97 95 Oximetry 07/02/16 07/02/16 07/02/16 04:30 05:00 05:30 Temperature Pulse Rate 75 72 72 Respiratory 15 17 13 Rate Blood Pressure (mmHg) O2 Sat by Pulse 95 97 98 Oximetry 07/02/16 07/02/16 07/02/16 06:00 06:30 07:00 Temperature Pulse Rate 75 71 74 Respiratory 15 12 11 Rate Blood Pressure 117/61 (mmHg) O2 Sat by Pulse 99 97 96 Oximetry 07/02/16 07/02/16 07/02/16 07:30 07:41 08:00 Temperature 98.3 F Pulse Rate 76 73 Respiratory 15 19 Rate Blood Pressure 99/58 (mmHg) O2 Sat by Pulse 97 97 Oximetry 07/02/16 07/02/16 08:30 09:00 Temperature Pulse Rate 76 77 Respiratory 20 19 Rate Blood Pressure (mmHg) O2 Sat by Pulse 96 98 Oximetry Oxygen Devices in Use Now: None Appearance: 85 yo M in NAd, aAOx3 Eyes: No Scleral Icterus, PERRLA Ears/Nose/Mouth/Throat: NL Teeth, Lips, Gums, Mucous Membranes Moist Neck: NL Appearance and Movements; NL JVP, Trachea Midline Respiratory: Symmetrical Chest Expansion and Respiratory Effort, Clear to Auscultation Cardiovascular: NL Sounds; No Murmurs; No JVD, RRR Abdominal: NL Sounds; No Tenderness; No Distention Lymphatic: No Cervical Adenopathy Extremities: No Clubbing, Cyanosis, - - R thigh with mild edema, no hemaotma, post op dressings not removed Skin: No Nodules or Sclerosis Neurological: Alert and Oriented x 3, NL Muscle Strength and Tone Result Diagrams: 07/02/16 05:56 07/02/16 09:52 Assess/Plan/Problems-Billing Assessment: Mr. Rodríguez is an 85 yo male with a PMH of atrial fibrillation, s/p bioprosthetic aortic valve replacement, OA, and HTN who presented to the ED on s/p fall and subsequent right hip fracture. - Patient Problems (1) Fracture of femoral neck, right Comment: S/p R hip ORIF by Dr. Juarze on 07/01/16 with a few short bursts of A. fib intraop. no evidence of a. fib on telem. will transfer to [facility]. (2) Hyponatremia Comment: chronic dating back to 2013, worse post op. stop IVF, monitor (3) Atrial fibrillation Comment: Post op valve replacement last year and a few short episodes intraop on 07/01/16 Now in NSR Continue sotalol and diltiazem. Xarelto held prior to surgery-to be restarted once Dr. Juarez agrees to do so post op. (4) Hypertension Comment: Controlled, continue diltiazem (5) S/P aortic valve replacement Comment: In August 2015, valve functioning normally on Echo 02/2016 (6) DVT prophylaxis Comment: heparin sc as per orthopedic surgery. Status and Disposition: Inpatient admission. Anticipate LOS >2 days.
[2016-07-02] MEDS ORDERED: Potassium Chloride LIQUID* 20 MEQ PACKET PO PRN (10:44)
[2016-07-02] MEDS ORDERED: traMADol TAB* 50 MG PO PRN (10:46)
[2016-07-02] MEDS: PTO:Bimatoprost 0.01% OPHTH (NF) 2.5 ML BTL BOTH EYES SCH (17:08)
[2016-07-03 07:07] LABS: Comments Flag Yes; Hematocrit 30 % (42-52); Hemoglobin 10.6 g/dl (14.0-18.0)
[2016-07-03 07:28] LABS: BUN/Creatinine Ratio 24.2 (8-20); Calcium 8.4 mg/dL (8.6-10.3); EGFR African American 146.8 (>60); EGFR Non-African American 114.2 (>60); Potassium 3.7 mmol/L (3.5-5.0)
[2016-07-03 07:58] VITALS: BP 136/62
[2016-07-03] MEDS: Potassium Chlor TAB* 10 MEQ TAB.ER PO SCH (08:44)
[2016-07-03] MEDS: Docusate CAP* 100 MG PO SCH (08:44)
[2016-07-03] MEDS: PRESERVISION AREDS PO SCH (08:44)
[2016-07-03] MEDS: Sotalol TAB* 80 MG PO SCH (08:44)
[2016-07-03] MEDS: Furosemide TAB* 20 MG PO SCH (08:44)
[2016-07-03] MEDS: Diltiazem CD CAP* 240 MG PO SCH (08:44)
[2016-07-03] MEDS: Acetaminophen TAB* 325 MG PO SCH (08:45)
[2016-07-03] MEDS: Heparin VIAL(*) 5000 UNITS/ML VIAL (FIVE THOUSAND) SUBCUT SCH (08:53)
[2016-07-03] MEDS ORDERED: Rivaroxaban TAB(*) 15 MG PO SCH (09:30)
[2016-07-03] MEDS ORDERED: Pneumococcal *Vac Polyvalent 0.5 ML VIAL IM ONE (10:00)
--- NOTE | 2016-07-03 11:46 | DS ---
DISCHARGE SUMMARY: DATE OF ADMISSION: 06/29/16 DATE OF DISCHARGE: Discharge from acute care facility and transfer to our physiotherapy unit, 07/03/16. PRIMARY CARE PROVIDER: Dr. Luis. DISCHARGE DIAGNOSES: Status post mechanical fall and right hip fracture as well as status post right total hip replacement performed by Dr. Juarez on . SECONDARY DIAGNOSES: 1. History of paroxysmal atrial fibrillation/flutter. 2. History of aortic stenosis, status post bioprosthetic valve replacement in August 2015. 3. Osteoarthritis. 4. Hypotension. 5. Chronic hyponatremia. MEDICATIONS AT DISCHARGE: Include: 1. Acetaminophen 975 mg p.o. b.i.d. 2. Lumigan eyedrops 0.01% 1 drop bilateral eyes q.p.m. 3. Dulcolax suppository 10 mg p.o. daily p.r.n. constipation. 4. Diltiazem CD 240 mg daily. 5. Colace 100 mg b.i.d. 6. Lasix 20 mg daily. 7. Potassium chloride 10 mEq daily. 8. Xarelto 15 mg daily. 9. Sotalol 40 mg b.i.d. CONSULTATIONS DURING THE HOSPITAL STAY: Included Dr. Monroy and Dr. Juarez from Orthopedic Surgery. PROCEDURE PERFORMED: On 07/01/16, right total hip replacement performed by Dr. Juarez. HOSPITALIZATION COURSE: Cassius Rodríguez is an 85-year-old male with history of paroxysmal atrial fibrillation and status post aortic valve replacement who presented after a mechanical fall with right hip fracture. Due to the patient being on Xarelto, his surgery was slightly delayed and was performed on by Dr. Juarez. That was right total hip replacement. Postoperatively, the patient is very well. He developed mild postoperative anemia and was transfused 1 unit of packed red blood cells. His hemoglobin remained stable and is 10.6 at discharge. The patient was deemed to be a good candidate for our physiotherapy unit and he is going to be transferred there today for further rehabilitation. Please note that intraoperatively the patient had a couple of short bursts of atrial fibrillation/flutter that resolved spontaneously. Please note the patient's Xarelto was held throughout the patient's hospital stay and restarted on the day of discharge after discussion and agreement with Dr. Juarez. LABORATORY DATA AT DISCHARGE: Includes hemoglobin 10.6, hematocrit of 30. Sodium was 128, potassium 3.7, chloride 95, carbon dioxide 28, BUN 16, creatinine 0.66. Wound care as per total hip protocol at [facility]. The patient is weightbearing as tolerated on the right hip. PHYSICAL EXAMINATION AT THE TIME OF DISCHARGE: Vital Signs: Blood pressure 136 /62, heart rate 78 and regular, respiratory rate 16, oxygen saturation 98% on room air, temperature 97.8. General: The patient is a very pleasant 85-year- old male who is in no acute distress. Alert, awake and oriented x3. HEENT: Head atraumatic, normocephalic. Eyes: Pupils are equal to light and accommodation. Oropharynx clear. Mucosa moist. Neck: Supple. No JVD. No bruits bilaterally. Cardiovascular: Regular rate and rhythm. No murmur. Respiratory: Clear to auscultation bilaterally. Abdomen: Soft, nontender. Bowel sounds present in all 4 quadrants. Extremities: There is no edema. Pulses are 2+ bilaterally. No clubbing or cyanosis. Evaluation of the skin, the postoperative thigh area has no hematoma. Direct postsurgical dressings that are applied to the wound were not covered during the evaluation. The dressings are going to be changed prior to discharge by the patient's surgeon. Please note that this is a short summary of the patient's hospital stay. Please refer to further medical records for details. TIME SPENT: Approximately 40 minutes was spent on the patient's discharge. CC: Dr. Luis; Dr. Juarez; Dr. Nick, Dr. Monroy* [id number]/CPS #: [id number] MTDD
== END 2016-07-03 11:30 | DRG 470 ==
LOC: ED 11:45 → SSU 13:35 → ICU 07-01 15:21 → SSU 07-02 12:19
PROVIDERS: ADMIT Hospitalist; ATTEND Internal Medicine
PROC: 0SR902Z Replacement of Right Hip Joint with Metal on Polyethylene Synthetic Substitute, Open Approach (ICD-10-PCS; principal; 2016-07-01 09:30)
PROC: 30233N1 Transfusion of Nonautologous Red Blood Cells into Peripheral Vein, Percutaneous Approach (ICD-10-PCS; 2016-07-02)
DX: S72.001A Fracture of unspecified part of neck of right femur, initial encounter for closed fracture (principal); I11.0 Hypertensive heart disease with heart failure; E87.8 Other disorders of electrolyte and fluid balance, not elsewhere classified; I50.32 Chronic diastolic (congestive) heart failure; I48.92 Unspecified atrial flutter; E87.1 Hypo-osmolality and hyponatremia; D62 Acute posthemorrhagic anemia; W00.0XXA Fall on same level due to ice and snow, initial encounter; Y93.H1 Activity, digging, shoveling and raking; M19.90 Unspecified osteoarthritis, unspecified site; I48.0 Paroxysmal atrial fibrillation; R41.0 Disorientation, unspecified; Y92.9 Unspecified place or not applicable; Z95.2 Presence of prosthetic heart valve; Z79.01 Long term (current) use of anticoagulants; Z88.1 Allergy status to other antibiotic agents; Z23 Encounter for immunization
CPT/HCPCS: 36415; 62323; 71010; 72170; 80048; 80053; 81003; 81015; 82565; 83605; 84484; 84520; 85014; 85018; 85025; 85060; 85610; 85730; 86850; 86900; 86901; 86922; 88305; 88311; 90732; 93005; A9270-GY; C1713; C1776; J0690; J1100; J1200; J1644; J2250; J3010; P9040

== ENCOUNTER 2016-07-03 07:03 | Inpatient (IN) | payer MEDICARE ==
[2016-07-03] MEDS ORDERED: Magnesium Hydroxide LIQ* 30 ML UDC PO PRN (11:42)
[2016-07-03] MEDS ORDERED: Bisacodyl SUPP* 10 MG SUPP PR PRN (11:42)
[2016-07-03] MEDS ORDERED: Sodium Phosphate ADULT ENEMA* 118 ml bottle PR PRN (11:42)
[2016-07-03] MEDS ORDERED: oxyCODONE/Acetamin 5/325 MG* TAB PO PRN (11:53)
[2016-07-03] MEDS ORDERED: Heparin VIAL(*) 5000 UNITS/ML VIAL (FIVE THOUSAND) SUBCUT SCH (14:00)
[2016-07-03] MEDS: Sotalol TAB* 80 MG PO SCH (17:47)
[2016-07-03] MEDS: PTO:Bimatoprost 0.01% OPHTH (NF) 2.5 ML BTL BOTH EYES SCH (18:42)
[2016-07-03] MEDS: Senna TAB PO SCH (21:00)
[2016-07-03] MEDS: Docusate CAP* 100 MG PO SCH (21:00)
[2016-07-03] MEDS: PRESERVISION AREDS PO SCH (21:05)
[2016-07-03] MEDS: Acetaminophen TAB* 325 MG PO PRN (21:44)
--- NOTE | 2016-07-03 23:39 | HP ---
HISTORY AND PHYSICAL: DATE OF ADMISSION: 07/03/16 REASON FOR ADMISSION: Right hip fracture. HISTORY OF PRESENT ILLNESS: Cassius Rodríguez is an 85-year-old white male. He has a medical history significant for paroxysmal atrial fibrillation as well as an aortic valve replacement in August of 2015. He also has rheumatoid arthritis, which is quiescent at the present time. The patient was getting into his car to go to [facility] on 06/29/16. He was brushing the snow off his car when he lost his balance and fell to the ground. He had immediate pain on his right hip. Workers from [place] came and helped him up. He called his son and the son came to get him. He was brought inside and then put in his son's car and brought to the hospital. He was taken to the emergency room at [facility]. X-rays were done, which showed a right displaced femoral neck fracture. Because he normally takes Xarelto, they had to wait before he could be taken to surgery. He was seen by Dr. Juarez and taken to the operating room on July 01 and underwent a right total hip replacement. Postoperatively, his course has been benign. His Xarelto was restarted this morning. He is felt to have physical therapy and occupational therapy needs. He is now being admitted for inpatient rehab, so that he might return to independent living. PAST MEDICAL HISTORY: Notable for the aforementioned aortic valve replacement, as well as atrial fibrillation. He has a history of hypertension as well. CURRENT MEDICATIONS: Include: 1. Cardizem CD. 2. He also takes Xarelto. 3. Lasix. 4. Betapace. 5. Lumigan eye drops. 6. He is on Percocet for pain control. ALLERGIES: TETRACYCLINES. SOCIAL HISTORY: The patient lives at [place] with his . They have some aide time. He is a nonsmoker. He has half a glass of wine in the evening. He has 4 children. His healthcare proxy is his son, Bakari Rodríguez. REVIEW OF SYSTEMS: No current shortness of breath or chest pain. PHYSICAL EXAMINATION VITAL SIGNS: The patient's temperature is 97.7, blood pressure is 120/51, pulse is 84, and respirations 22. HEENT: Extraocular movements are intact. Tongue is midline. NECK: Supple. LUNGS: Sound clear to auscultation bilaterally. HEART: Sounds were regular, S1 and S2 audible. ABDOMEN: Soft and nontender. EXTREMITIES: His right hip has a wound, which is clean and dry. Peripheral pulses were intact. NEUROLOGIC: He is awake, alert, and oriented. Muscle strength is 5/5 except the right leg, which is 3/5 secondary to pain. FUNCTIONAL EXAM: The patient transfers with min-to-mod assist. ASSESSMENT: Right hip fracture, status post right total hip replacement. PLAN: Our plan is to integrate him into a comprehensive and therapeutic rehab program with the following goals: 1. Physical Therapy will work with the patient. They are going to work on functional transfer training, ambulation training with a walker. 2. Occupational Therapy will see the patient and work on his activities of daily living, including toileting and toilet transfers. 3. Xarelto for atrial fibrillation as well as DVT prophylaxis. 4. Continue Betapace and Cardizem for atrial fibrillation. 5. Continue Lasix and potassium supplementation. 6. Advance directives: The patient is a full code. 7. Family training as appropriate. 8. financial services intern will be closely involved to make sure that any services and equipment that the patient requires are in place prior to discharge. 9. Home with appropriate services. ESTIMATED LENGTH OF STAY: Ten days. [id number]/[facility] #: [id number] MTDD
[2016-07-04] MEDS: Acetaminophen TAB* 325 MG PO PRN ×2 (03:51→21:15)
[2016-07-04] MEDS: PRESERVISION AREDS PO SCH ×2 (09:13→17:47)
[2016-07-04] MEDS: Furosemide TAB* 20 MG PO SCH (09:13)
[2016-07-04] MEDS: Rivaroxaban TAB(*) 15 MG PO SCH (09:13)
[2016-07-04] MEDS: Potassium Chlor TAB* 10 MEQ TAB.ER PO SCH (09:13)
[2016-07-04] MEDS: Docusate CAP* 100 MG PO SCH ×3 (09:13→23:03)
[2016-07-04] MEDS: Sotalol TAB* 80 MG PO SCH ×2 (09:14→17:40)
[2016-07-04] MEDS: Diltiazem CD CAP* 240 MG PO SCH (09:14)
[2016-07-04 12:30] LABS: Hematocrit 30 % (42-52); Hemoglobin 10.4 g/dl (14.0-18.0); Mean Corpuscular HGB Conc 34 g/dl (31-36); Mean Corpuscular Hemoglobin 33 pg (27-31); Mean Corpuscular Volume 97 fL (80-94); Mean Platelet Volume 7 um3 (7.4-10.4); Red Blood Count 3.13 10^6/ul (4.0-5.4); Red Cell Distribution Width 15 % (10.5-15); White Blood Count 9.8 10^3/ul (3.5-10.8)
[2016-07-04 12:51] LABS: Albumin 3.2 g/dL (3.2-5.2); BUN/Creatinine Ratio 25.4 (8-20); Calcium 8.6 mg/dL (8.6-10.3); EGFR African American 144.3 (>60); EGFR Non-African American 112.2 (>60); Globulin 3.1 g/dL (2-4); Total Bilirubin 1.5 mg/dL (0.2-1.0); Total Protein 6.3 g/dL (6.4-8.9)
--- NOTE | 2016-07-04 12:53 | PMRUTEAM ---
PMRU: Goals Current Status: Nursing: Current Status Skin Deviations [Bilateral Bruise Hand] Skin Deviations [Right Hip] Incision Skin Deviation Description [ chinmay intact to R hip incision, small amount of Right Hip] bloody drainage noted Physical Therapy: Current Status Bed Mobility Assistance Not Tested Transfer Moblility Assistance Contact Guard Assist,Min Assist Transfer/Bed Mobility Rolling Walker Recommended Devices Ambulation Assistance Supervision,Contact Guard Assist Ambulation Assistive Devices Rolling Walker Number of Feet Patient 20' x 2 Ambulated Stairs Assistance Not Tested Stairs Recommended Devices Two Rails Number of Stairs 6 Curb Not Tested Rec Therapy: Current Status Summary of Assessment and Pt. is aware of RT services and RT assessment is Clinical Impression complete. Pt. was pleasant, cooperative, open to leisure visits, and requested crossword puzzles which were provided to him. Social Work: Current Status Discharge Plan return home to [place] Independent apartment w/ home care svs and family support Potential for Family Training pt's family is involved and attentive Anticipated Discharge Home Destination Discharge With VNS and family support Goals: Physical Therapy: Updated Goals Transfer/Bed Mobility Independent with Rolling Walker Recommended Devices Social Work: Goals Discharge Plan return home to [place] Independent apartment w/ home care svs and family support Potential for Family Training pt's family is involved and attentive Anticipated Discharge Home Destination Discharge With VNS and family support OCCUPATIONAL THERAPY: Mod Independent with ADLs Care Plan: Care Plan Communication-Improve/Maintain Start: 07/03/16 22:02 Freq: QSHIFT Status: Active Target: Activity Type Activity Date Activity User E-Sign Co-Sign Detail Recorded Client Recorded Date Recorded By Document 07/03/16 22:02 [id number] 07/04/16 01:10 [id number] 07/03/16 22:02 PMRU Outcome: Communication/Cognitive Status Outcome/Goals Makes Needs Known Effectively Progression Toward Outcomes/Goals Progressing Mobility- Improve/Maintain Start: 07/03/16 11:44 Freq: QSHIFT Status: Active Target: Activity Type Activity Date Activity User E-Sign Co-Sign Detail Recorded Client Recorded Date Recorded By Document 07/04/16 12:17 [id number] 07/04/16 12:17 [id number] 07/04/16 12:17 PMRU Outcome: Mobility Physical Therapy Evaluation and Yes Treatment Activity OOB with Assistance Yes WBAT Yes Device Yes Assistance Yes Patient to be seen 5x/wk for 60-120 min/ Therex day for: Mobility Training Gait Training Balance Other Therapy Comment Hip precautions Outcome/Goals Maintain/ Achieve Baseline Mobility Status Improve Mobility Status Demonstrates Proper Use of Assistive Devices Free from Complications of Immobility Progression Toward Outcome/Goals Progressing Bed Mobility Yes: Independent Transfers Yes: Modified Independent with RW Gait x ft Yes: Modified Independent 150 ' with RW Up/Down Stairs Yes: Independent 6 steps 2 rails With HEP Yes: Independent Goal Comment Recall 3/3 hip precautions independently Pain/Comfort-Improve/Maintain Start: 07/03/16 22:03 Freq: QSHIFT Status: Active Target: Activity Type Activity Date Activity User E-Sign Co-Sign Detail Recorded Client Recorded Date Recorded By Document 07/04/16 02:07 [id number] 07/04/16 02:07 [id number] 07/04/16 02:07 Outcome: Pain/Comfort Outcome/Goals Demonstrates Knowledge and Use of Available Comfort Measures Achieves Acceptable Comfort/Pain Level as Determined by Patient/Condit Progression Toward Outcome/Goals Progressing Medicine Note: Length of Stay: 10 days Anticipated Discharge Destination: Home Tentative Discharge Date: 07/15/16 Discharged to: Home
[2016-07-04 12:55] LABS: Potassium 4.2 mmol/L (3.5-5.0)
[2016-07-04] MEDS: Senna TAB PO SCH (17:46)
[2016-07-04] MEDS: PTO:Bimatoprost 0.01% OPHTH (NF) 2.5 ML BTL BOTH EYES SCH (17:47)
[2016-07-05] MEDS: PRESERVISION AREDS PO SCH ×3 (00:16→20:24)
[2016-07-05] MEDS: Senna TAB PO SCH ×2 (00:16→20:27)
[2016-07-05] MEDS: Furosemide TAB* 20 MG PO SCH (09:10)
[2016-07-05] MEDS: Diltiazem CD CAP* 240 MG PO SCH (09:10)
[2016-07-05] MEDS: Docusate CAP* 100 MG PO SCH ×2 (09:11→20:24)
[2016-07-05] MEDS: Rivaroxaban TAB(*) 15 MG PO SCH (09:11)
[2016-07-05] MEDS: Potassium Chlor TAB* 10 MEQ TAB.ER PO SCH (09:11)
[2016-07-05] MEDS: Sotalol TAB* 80 MG PO SCH ×2 (09:13→17:40)
[2016-07-05] MEDS: PTO:Bimatoprost 0.01% OPHTH (NF) 2.5 ML BTL BOTH EYES SCH (17:41)
[2016-07-05] MEDS: Acetaminophen TAB* 325 MG PO PRN (21:35)
[2016-07-06] MEDS: Furosemide TAB* 20 MG PO SCH (08:22)
[2016-07-06] MEDS: Potassium Chlor TAB* 10 MEQ TAB.ER PO SCH (08:22)
[2016-07-06] MEDS: Diltiazem CD CAP* 240 MG PO SCH (08:22)
[2016-07-06] MEDS: Sotalol TAB* 80 MG PO SCH ×2 (08:23→17:21)
[2016-07-06] MEDS: Rivaroxaban TAB(*) 15 MG PO SCH (08:23)
[2016-07-06] MEDS: PRESERVISION AREDS PO SCH ×2 (08:24→21:03)
[2016-07-06] MEDS: Docusate CAP* 100 MG PO SCH ×2 (08:25→21:03)
[2016-07-06 08:53] LABS: Hematocrit 30 % (42-52); Hemoglobin 10.1 g/dl (14.0-18.0); Mean Corpuscular HGB Conc 34 g/dl (31-36); Mean Corpuscular Hemoglobin 33 pg (27-31); Mean Corpuscular Volume 99 fL (80-94); Mean Platelet Volume 7 um3 (7.4-10.4); Red Blood Count 3.02 10^6/ul (4.0-5.4); Red Cell Distribution Width 15 % (10.5-15); White Blood Count 9.6 10^3/ul (3.5-10.8)
[2016-07-06] MEDS: PTO:Bimatoprost 0.01% OPHTH (NF) 2.5 ML BTL BOTH EYES SCH (18:53)
[2016-07-06] MEDS: Senna TAB PO SCH (21:04)
[2016-07-06] MEDS: Acetaminophen TAB* 325 MG PO PRN (22:15)
[2016-07-07] MEDS: Docusate CAP* 100 MG PO SCH ×2 (09:16→20:49)
[2016-07-07] MEDS: Rivaroxaban TAB(*) 15 MG PO SCH (09:16)
[2016-07-07] MEDS: PRESERVISION AREDS PO SCH ×2 (09:16→20:49)
[2016-07-07] MEDS: Potassium Chlor TAB* 10 MEQ TAB.ER PO SCH (09:17)
[2016-07-07] MEDS: Diltiazem CD CAP* 240 MG PO SCH (09:17)
[2016-07-07] MEDS: Sotalol TAB* 80 MG PO SCH ×2 (09:17→17:29)
[2016-07-07] MEDS: Furosemide TAB* 20 MG PO SCH (09:17)
[2016-07-07] MEDS: PTO:Bimatoprost 0.01% OPHTH (NF) 2.5 ML BTL BOTH EYES SCH (18:28)
[2016-07-07] MEDS: Senna TAB PO SCH (20:49)
[2016-07-07] MEDS: Acetaminophen TAB* 325 MG PO PRN (23:04)
[2016-07-08] MEDS: Sotalol TAB* 80 MG PO SCH ×2 (08:50→17:01)
[2016-07-08] MEDS: Docusate CAP* 100 MG PO SCH ×2 (08:50→21:37)
[2016-07-08] MEDS: Potassium Chlor TAB* 10 MEQ TAB.ER PO SCH (08:53)
[2016-07-08] MEDS: Furosemide TAB* 20 MG PO SCH (08:53)
[2016-07-08] MEDS: Rivaroxaban TAB(*) 15 MG PO SCH (08:53)
[2016-07-08] MEDS: PRESERVISION AREDS PO SCH ×2 (08:53→21:42)
[2016-07-08] MEDS: Diltiazem CD CAP* 240 MG PO SCH (08:53)
--- NOTE | 2016-07-08 12:31 | PMRUTEAM ---
PMRU: Goals Current Status: Nursing: Current Status Skin Deviations [Bilateral Bruise Hand] Skin Deviations [Right Hip] Incision Skin Deviation Description [ chinmay are clean dry and intact Right Hip] Physical Therapy: Current Status Bed Mobility Assistance Min Assist,Mod Assist,Not Tested Transfer Moblility Assistance Supervision,Contact Guard Assist Transfer/Bed Mobility Rolling Walker Recommended Devices Ambulation Assistance Supervision Ambulation Assistive Devices Rolling Walker Number of Feet Patient 120 Ambulated Stairs Assistance Not Tested Stairs Recommended Devices Two Rails Number of Stairs 6 Curb Not Tested Occupational Therapy: Current Status Upper Body Dressing Min Assist Lower Body Dressing Mod Assist,Max Asst Bathing Mod Assist Toileting Max Asst Toilet Transfer Min Assist Shower Transfer Min Assist Eating Independent Rec Therapy: Current Status Summary of Assessment and RT assessment complete and pt. is aware of RT Clinical Impression services. Pt. is open to continued leisure visits . Pt.'s visits regularly in the afternoons as well. Treatment Goals Pt. will engage in leisure activities while on the unit. Treatment Plan Provide and encourage involvement in RT services. Social Work: Current Status Discharge Plan Return home with home care svs and family support Potential for Family Training pt's & son is involved and supportive Anticipated Discharge Home Destination Discharge With Home care svs and family support Nutrition: Current Status Monitoring Pt is eating adequately (75-100%) and meeting needs. Regular bowel pattern (last BM 07/06). No skin breakdown. s/p R hip replacement - on xarelto for anticoagulation. No ed needs. Na 129 . No specific further nutrition intervention. Goals: Physical Therapy: Initial Goals Bed Mobility Assistance Independent Transfer Mobility Assistance Independent Transfer/Bed Mobility Rolling Walker Recommended Devices Ambulation Independent Ambulation Recommended Devices Rolling Walker Ambulation Distance 150 Stairs Assistance Independent Stair Recommended Devices Two Rails Number of Stairs 6 Home Exercise Program Independent Assistance Physical Therapy: Updated Goals Bed Mobility Assistance Independent Transfer Mobility Assistance Independent Transfer/Bed Mobility Rolling Walker Recommended Devices Ambulation Assistance Independent Ambulation Assistive Devices Rolling Walker Ambulation Distance (ft) 150 Stairs Assistance Independent Stairs Recommended Devices Two Rails Number of Stairs 6 Home Exercise Program Independent Assistance Occupational Therapy: Initial Goals Goals to be Completed in (Days 7-10 ) Upper Body Bathing Routine Modified Independent with Lower Body Bathing Routine Modified Independent with Upper Body Dressing Routine Modified Independent with Lower Body Dressing Routine Modified Independent with Toilet Hygeine and Clothing Modified Independent with Management Routine Toilet Transfer Routine Modified Independent with Step-In Shower Transfer Modified Independent with Routine Functional Transfers for ADL Modified Independent with Grooming Routine Independent Feeding Routine Independent Nutrition: Goals Intervention Goals 1. Maintains adequate oral intake to support weight maintenance, maintenance of lean body mass. 2. Achieves Na level WNL. Social Work: Goals Discharge Plan Return home with home care svs and family support Potential for Family Training pt's & son is involved and supportive Anticipated Discharge Home Destination Discharge With Home care svs and family support Care Plan: Care Plan ADL's - Improve/Maintain Start: 07/04/16 16:41 Freq: QSHIFT Status: Active Target: Activity Type Activity Date Activity User E-Sign Co-Sign Detail Recorded Client Recorded Date Recorded By Document 07/08/16 11:21 [id number] 07/08/16 11:21 [id number] 07/08/16 11:21 PMRU Outcome: ADL's/ADL Transfers Orders/Interventions Occupational Therapy Evaluation & Treatment Communication Tool in Patient Room Device Yes Patient to receive OT 5x/wk for 60-120 Therex min/day Self Care Management Group Therapy UE/LE ADL's with Assist Yes: Blanca with AE ADL Transfers with Assist Yes: Blanca Toileting: Transfers,Clothing Management Yes: Blanca ,Hygeine w/Assist Progression Toward Outcome/Goals Progressing Communication-Improve/Maintain Start: 07/03/16 22:02 Freq: QSHIFT Status: Active Target: Activity Type Activity Date Activity User E-Sign Co-Sign Detail Recorded Client Recorded Date Recorded By Document 07/08/16 05:58 [id number] 07/08/16 05:58 [id number] 07/08/16 05:58 PMRU Outcome: Communication/Cognitive Status Outcome/Goals Makes Needs Known Effectively Progression Toward Outcomes/Goals Progressing DVT Prophylaxis- Improve/Maintain Start: 07/04/16 02:06 Freq: QSHIFT Status: Active Target: Activity Type Activity Date Activity User E-Sign Co-Sign Detail Recorded Client Recorded Date Recorded By Document 07/08/16 08:00 [id number] 07/08/16 10:46 [id number] 07/08/16 08:00 PMRU Outcome: DVT Prophylaxis Outcome/Goals Remains Free of DVT Complies with DVT Prophylaxis /Treatment Demonstrates Knowledge of DVT Prevention/ Treatment Progression Toward Outcome/Goals Progressing Discharge Planning - Improve/Maintain Start: 07/04/16 02:06 Freq: QSHIFT Status: Active Target: Activity Type Activity Date Activity User E-Sign Co-Sign Detail Recorded Client Recorded Date Recorded By Document 07/08/16 05:58 [id number] 07/08/16 05:58 [id number] 07/08/16 05:58 PMRU Outcome: Discharge Planning Identify Patient Needs yes Update Patient Family No Outcome/Goals Demonstrates Understanding of Discharge Plan Progression Toward Outcome/Goals Progressing Mobility- Improve/Maintain Start: 07/03/16 11:44 Freq: QSHIFT Status: Active Target: Activity Type Activity Date Activity User E-Sign Co-Sign Detail Recorded Client Recorded Date Recorded By Document 07/05/16 19:37 [id number] 07/05/16 19:37 [id number] 07/05/16 19:37 PMRU Outcome: Mobility Physical Therapy Evaluation and Yes Treatment Activity OOB with Assistance Yes WBAT Yes Device Yes Assistance Yes Patient to be seen 5x/wk for 60-120 min/ Therex day for: Mobility Training Gait Training Balance Other Therapy Comment Hip precautions Outcome/Goals Maintain/ Achieve Baseline Mobility Status Improve Mobility Status Demonstrates Proper Use of Assistive Devices Free from Complications of Immobility Progression Toward Outcome/Goals Progressing Bed Mobility Yes: Independent Transfers Yes: Modified Independent with RW Gait x ft Yes: Modified Independent 150 ' with RW Up/Down Stairs Yes: Independent 6 steps 2 rails With HEP Yes: Independent Goal Comment Recall 3/3 hip precautions independently Pain/Comfort-Improve/Maintain Start: 07/03/16 22:03 Freq: QSHIFT Status: Complete Target: Activity Type Activity Date Activity User E-Sign Co-Sign Detail Recorded Client Recorded Date Recorded By Document 07/05/16 08:00 [id number] 07/05/16 13:05 [id number] 07/05/16 08:00 Outcome: Pain/Comfort Outcome/Goals Demonstrates Knowledge and Use of Available Comfort Measures Achieves Acceptable Comfort/Pain Level as Determined by Patient/Condit Outcome/Goals Met Demonstrated Knowledge and Use of Available Comfort Measures Achieved Acceptable Comfort/Pain Level as Determined by Patient/Condit Safety- Improve/Maintain Start: 07/04/16 02:06 Freq: QSHIFT Status: Active Target: Activity Type Activity Date Activity User E-Sign Co-Sign Detail Recorded Client Recorded Date Recorded By Document 07/08/16 08:00 [id number] 07/08/16 10:46 [id number] 07/08/16 08:00 PMRU Outcome: Safety Outcome/Goals Remain Free of Injury or Harm Cooperates with Safety Measures for Least Restrictive Environment Progression Toward Outcome/Goals Progressing Skin- Improve/Maintain Start: 07/04/16 02:06 Freq: QSHIFT Status: Active Target: Activity Type Activity Date Activity User E-Sign Co-Sign Detail Recorded Client Recorded Date Recorded By Document 07/08/16 08:00 [id number] 07/08/16 10:46 [id number] 07/08/16 08:00 PMRU Outcome: Skin Skin Risk Level Medium Skin Orders Dressing Change Dressing Change Comments bandages inyact over two popped blisters . moderate amount of serosanguinous dried drainage on both. Outcome/Goals Maintain/ Improve Wound Status Surgical Incisions Healing Progression Toward Outcome/Goals Progressing Medicine Note: Length of Stay: 7 days Anticipated Discharge Destination: Home Tentative Discharge Date: 07/15/16 Discharged to: [facility]
[2016-07-08] MEDS: PTO:Bimatoprost 0.01% OPHTH (NF) 2.5 ML BTL BOTH EYES SCH (18:08)
[2016-07-08] MEDS: Senna TAB PO SCH (21:37)
[2016-07-08] MEDS: Acetaminophen TAB* 325 MG PO PRN (22:04)
[2016-07-09] MEDS: PRESERVISION AREDS PO SCH ×2 (08:43→20:00)
[2016-07-09] MEDS: Docusate CAP* 100 MG PO SCH ×2 (08:44→19:59)
[2016-07-09] MEDS: Rivaroxaban TAB(*) 15 MG PO SCH (08:44)
[2016-07-09] MEDS: Sotalol TAB* 80 MG PO SCH ×2 (08:44→17:29)
[2016-07-09] MEDS: Furosemide TAB* 20 MG PO SCH (08:44)
[2016-07-09] MEDS: Potassium Chlor TAB* 10 MEQ TAB.ER PO SCH (08:44)
[2016-07-09] MEDS: Diltiazem CD CAP* 240 MG PO SCH (08:45)
[2016-07-09] MEDS: PTO:Bimatoprost 0.01% OPHTH (NF) 2.5 ML BTL BOTH EYES SCH (17:30)
[2016-07-09] MEDS: Senna TAB PO SCH (20:01)
[2016-07-09] MEDS: Acetaminophen TAB* 325 MG PO PRN (22:01)
[2016-07-10 06:59] LABS: Hematocrit 28 % (42-52); Hemoglobin 9.7 g/dl (14.0-18.0); Mean Corpuscular HGB Conc 34 g/dl (31-36); Mean Corpuscular Hemoglobin 34 pg (27-31); Mean Corpuscular Volume 99 fL (80-94); Mean Platelet Volume 7 um3 (7.4-10.4); Red Blood Count 2.87 10^6/ul (4.0-5.4); Red Cell Distribution Width 15 % (10.5-15); White Blood Count 9.1 10^3/ul (3.5-10.8)
[2016-07-10] MEDS: PRESERVISION AREDS PO SCH ×2 (08:33→19:57)
[2016-07-10] MEDS: Rivaroxaban TAB(*) 15 MG PO SCH (08:34)
[2016-07-10] MEDS: Potassium Chlor TAB* 10 MEQ TAB.ER PO SCH (08:34)
[2016-07-10] MEDS: Furosemide TAB* 20 MG PO SCH (08:34)
[2016-07-10] MEDS: Diltiazem CD CAP* 240 MG PO SCH (08:34)
[2016-07-10] MEDS: Sotalol TAB* 80 MG PO SCH ×2 (08:34→17:26)
[2016-07-10] MEDS: Docusate CAP* 100 MG PO SCH ×2 (08:34→19:57)
[2016-07-10] MEDS: PTO:Bimatoprost 0.01% OPHTH (NF) 2.5 ML BTL BOTH EYES SCH (17:27)
[2016-07-10] MEDS ORDERED: Hydrocortisone 1% CREAM* 30 GM TUBE TOPICAL PRN (17:33)
[2016-07-10] MEDS: Senna TAB PO SCH (19:45)
[2016-07-11 05:45] LABS: Hematocrit 28 % (42-52); Hemoglobin 9.5 g/dl (14.0-18.0); Mean Corpuscular HGB Conc 34 g/dl (31-36); Mean Corpuscular Hemoglobin 33 pg (27-31); Mean Corpuscular Volume 99 fL (80-94); Mean Platelet Volume 7 um3 (7.4-10.4); Red Blood Count 2.84 10^6/ul (4.0-5.4); Red Cell Distribution Width 15 % (10.5-15); White Blood Count 9.7 10^3/ul (3.5-10.8)
[2016-07-11 06:33] LABS: Albumin 2.9 g/dL (3.2-5.2); BUN/Creatinine Ratio 22.9 (8-20); Calcium 8.6 mg/dL (8.6-10.3); EGFR African American 137.2 (>60); EGFR Non-African American 106.7 (>60); Globulin 2.8 g/dL (2-4); Potassium 4.2 mmol/L (3.5-5.0); Total Bilirubin 1.4 mg/dL (0.2-1.0); Total Protein 5.7 g/dL (6.4-8.9)
[2016-07-11] MEDS: Sotalol TAB* 80 MG PO SCH ×2 (09:06→17:22)
[2016-07-11] MEDS: Diltiazem CD CAP* 240 MG PO SCH (09:06)
[2016-07-11] MEDS: Docusate CAP* 100 MG PO SCH ×2 (09:06→20:14)
[2016-07-11] MEDS: Potassium Chlor TAB* 10 MEQ TAB.ER PO SCH (09:07)
[2016-07-11] MEDS: Rivaroxaban TAB(*) 15 MG PO SCH (09:07)
[2016-07-11] MEDS: PRESERVISION AREDS PO SCH ×2 (09:07→20:15)
[2016-07-11] MEDS: Furosemide TAB* 20 MG PO SCH (09:07)
[2016-07-11] MEDS: PTO:Bimatoprost 0.01% OPHTH (NF) 2.5 ML BTL BOTH EYES SCH (17:23)
[2016-07-11] MEDS: Senna TAB PO SCH (20:14)
[2016-07-11] MEDS: Acetaminophen TAB* 325 MG PO PRN (21:48)
[2016-07-12] MEDS: PRESERVISION AREDS PO SCH ×2 (10:20→19:58)
[2016-07-12] MEDS: Furosemide TAB* 20 MG PO SCH (10:21)
[2016-07-12] MEDS: Diltiazem CD CAP* 240 MG PO SCH (10:21)
[2016-07-12] MEDS: Potassium Chlor TAB* 10 MEQ TAB.ER PO SCH (10:21)
[2016-07-12] MEDS: Rivaroxaban TAB(*) 15 MG PO SCH (10:21)
[2016-07-12] MEDS: Sotalol TAB* 80 MG PO SCH ×2 (10:21→17:35)
[2016-07-12] MEDS: Docusate CAP* 100 MG PO SCH ×2 (10:24→19:57)
[2016-07-12] MEDS: PTO:Bimatoprost 0.01% OPHTH (NF) 2.5 ML BTL BOTH EYES SCH (17:36)
[2016-07-12] MEDS: Senna TAB PO SCH (20:00)
[2016-07-12] MEDS: Acetaminophen TAB* 325 MG PO PRN (21:57)
[2016-07-13] MEDS: Sotalol TAB* 80 MG PO SCH ×2 (08:45→18:15)
[2016-07-13] MEDS: PRESERVISION AREDS PO SCH ×2 (08:45→21:10)
[2016-07-13] MEDS: Potassium Chlor TAB* 10 MEQ TAB.ER PO SCH (08:45)
[2016-07-13] MEDS: Diltiazem CD CAP* 240 MG PO SCH (08:45)
[2016-07-13] MEDS: Rivaroxaban TAB(*) 15 MG PO SCH (08:45)
[2016-07-13] MEDS: Furosemide TAB* 20 MG PO SCH (08:45)
[2016-07-13] MEDS: Docusate CAP* 100 MG PO SCH ×2 (08:46→21:10)
[2016-07-13] MEDS: PTO:Bimatoprost 0.01% OPHTH (NF) 2.5 ML BTL BOTH EYES SCH (18:15)
[2016-07-13] MEDS: Senna TAB PO SCH ×2 (21:09→21:15)
[2016-07-13] MEDS: Acetaminophen TAB* 325 MG PO PRN (21:59)
[2016-07-14] MEDS: Rivaroxaban TAB(*) 15 MG PO SCH (07:51)
[2016-07-14] MEDS: PRESERVISION AREDS PO SCH ×2 (07:51→19:57)
[2016-07-14] MEDS: Sotalol TAB* 80 MG PO SCH ×2 (07:51→17:42)
[2016-07-14] MEDS: Docusate CAP* 100 MG PO SCH ×2 (07:51→19:58)
[2016-07-14] MEDS: Potassium Chlor TAB* 10 MEQ TAB.ER PO SCH (07:51)
[2016-07-14] MEDS: Diltiazem CD CAP* 240 MG PO SCH (07:51)
[2016-07-14] MEDS: Furosemide TAB* 20 MG PO SCH (07:51)
[2016-07-14] MEDS: PTO:Bimatoprost 0.01% OPHTH (NF) 2.5 ML BTL BOTH EYES SCH (17:43)
[2016-07-14] MEDS: Senna TAB PO SCH (19:58)
[2016-07-14] MEDS: Acetaminophen TAB* 325 MG PO PRN (21:59)
[2016-07-15 06:18] VITALS: BP 118/54
[2016-07-15] MEDS: PRESERVISION AREDS PO SCH (08:46)
[2016-07-15] MEDS: Sotalol TAB* 80 MG PO SCH (08:46)
[2016-07-15] MEDS: Potassium Chlor TAB* 10 MEQ TAB.ER PO SCH (08:47)
[2016-07-15] MEDS: Diltiazem CD CAP* 240 MG PO SCH (08:47)
[2016-07-15] MEDS: Furosemide TAB* 20 MG PO SCH (08:47)
[2016-07-15] MEDS: Rivaroxaban TAB(*) 15 MG PO SCH (08:47)
[2016-07-15] MEDS: Docusate CAP* 100 MG PO SCH (08:48)
--- NOTE | 2016-07-17 03:46 | DS ---
DISCHARGE SUMMARY: DATE OF ADMISSION: 07/03/16 DATE OF DISCHARGE: 07/15/16 DISCHARGE DIAGNOSES: 1. Right hip fracture. 2. Paroxysmal atrial fibrillation. 3. Hypertension. 4. Status post aortic valve replacement. HISTORY OF ILLNESS AND HOSPITAL COURSE: For complete history of the events leading up to his rehab stay, please see the history and physical as dictated by me on 07/03/16. While on the rehab unit, his Xarelto was restarted. The patient's wound healed well. His chinmay were able to be removed without difficulty. The patient avoided any pain medications as he felt they made him confused. He had some difficulties with mild constipation, but this responded to a stool softener. Otherwise, the patient was medically stable. The patient was seen by both Physical and Occupational Therapy and made good gains with both disciplines. With physical therapy at the time of admission, the patient required min to mod assist of 2 people in order to do a transfer. He could ambulate about 12 feet with contact guard. With occupational therapy, he was mod assist with toileting and toilet transfers as well as lower body dressing. By the time of discharge, the patient was independent in transfers, independent ambulating 150 feet using a two-wheeled walker, independent going up and down few stairs. He was modified independent with dressing and toileting , modified independent with toilet transfers and tub transfers. The patient was discharged home on 07/15/16. DISCHARGE DIET: Regular. DISCHARGE MEDICATIONS: 1. Lumigan eyedrops 1 drop both eyes every evening. 2. Cardizem CD 240 mg daily. 3. Lasix 20 mg daily. 4. Potassium 10 mEq daily. 5. Xarelto 15 mg daily. 6. Betapace 80 mg twice daily. SERVICES AFTER DISCHARGE: Through visiting nurse service. He will have home nursing. FOLLOWUP: Followup will be with Dr. Brent Juarez as well as with Dr. Haja Luis. CC: Dr. Haja Luis* [id number]/[facility] #: [id number] MTDD
== END 2016-07-15 13:25 | disposition home or self-care (01) | DRG 561 ==
LOC: PMRU 11:30
PROVIDERS: ADMIT Physical Medicine & Rehabilitation; ATTEND Physical Medicine & Rehabilitation
PROC: F07Z5ZZ Bed Mobility Treatment (ICD-10-PCS; principal; 2016-07-03)
PROC: F07Z9ZZ Gait Training/Functional Ambulation Treatment (ICD-10-PCS; 2016-07-03)
PROC: F07Z8ZZ Transfer Training Treatment (ICD-10-PCS; 2016-07-03)
PROC: F08Z0ZZ Bathing/Showering Techniques Treatment (ICD-10-PCS; 2016-07-03)
PROC: F08Z1ZZ Dressing Techniques Treatment (ICD-10-PCS; 2016-07-03)
PROC: F08Z3ZZ Feeding/Eating Treatment (ICD-10-PCS; 2016-07-03)
DX: S72.001D Fracture of unspecified part of neck of right femur, subsequent encounter for closed fracture with routine healing (principal); I48.0 Paroxysmal atrial fibrillation; M06.9 Rheumatoid arthritis, unspecified; I10 Essential (primary) hypertension; W00.0XXD Fall on same level due to ice and snow, subsequent encounter; Z79.01 Long term (current) use of anticoagulants; Z95.2 Presence of prosthetic heart valve; Z79.899 Other long term (current) drug therapy; Z88.8 Allergy status to other drugs, medicaments and biological substances; Z96.641 Presence of right artificial hip joint
CPT/HCPCS: 36415; 80053; 85025; 85027; A9270-GY

== ENCOUNTER 2017-11-06 15:19 | Observation (INO) | payer MEDICARE ==
--- NOTE | 2017-11-06 18:46 | ED ---
GI/ HPI - HPI Summary HPI Summary: Patient sent to the ED by her primary care for heme positive stool. Patient states he's been having dark tarry stools 1 week, with some notable decrease in energy in the past 2 days. Denies any other symptoms or pain. Denies trauma , fever, cough, sore throat, CP, SOB, N/V/D, abdominal pain, change in urinary BM. No prior history of GI bleed. Also states he was orthostatic positive at primary care. Last colonoscopy 2010. Patient on Xarelto. Medical history is CHF, HTN, aortic valve replacement, A. fib, arthritis. Blood type A positive - History of Current Complaint Chief Complaint: EDGIBleed Time Seen by Provider: 11/06/17 18:11 Stated Complaint: RECTAL BLEEDING Hx Obtained From: Patient, Family/Machine Umbrella Tipper Onset/Duration: Started Days Ago Timing: Constant Current Severity: None Vaginal Bleeding Description: Brownish-Red Pain Intensity: 0 Associated Signs and Symptoms: Positive: Black Tarry Stool Aggravating Factor(s): Nothing Alleviating Factor(s): Nothing - Additional Pertinent History Primary Care Physician: [id number] - Allergy/Home Medications Allergies/Adverse Reactions: Allergies Allergy/AdvReac Type Severity Reaction Status Date / Time tetracycline Allergy Unknown Verified 11/06/17 15:23 Reaction Details Home Medications: Home Medications DOXYcycline CAP(*) [DOXYcycline 100MG CAP(*)] 100 mg PO DAILY PRN 11/06/17 [ History Confirmed 11/06/17] Furosemide TAB* [Lasix TAB*] 20 mg PO DAILY 11/06/17 [History Confirmed 11/06/17 ] Hydroxychloroquine TAB* [Plaquenil TAB*] 400 mg PO DAILY 11/06/17 [History Confirmed 11/06/17] Latanoprost 0.005%* [Xalatan 0.005%*] 1 drop BOTH EYES QPM 11/06/17 [History Confirmed 11/06/17] Potassium Chlor TAB (NF) [Kaon-Cl-10 TAB (NF)] 10 meq PO DAILY 11/06/17 [ History Confirmed 11/06/17] Rivaroxaban TAB(*) [Xarelto 15 mg(*)] 15 mg PO DAILY 11/06/17 [History Confirmed 11/06/17] Sotalol TAB* [Betapace 80 MG TAB*] 40 mg PO 0900,1700 11/06/17 [History Confirmed 11/06/17] Vit C/E/Zn/Coppr/Lutein/Zeaxan [Preservision Areds 2 Softgel] 1 cap PO BID 11/06 [History Confirmed 11/06/17] predniSONE TAB* [Deltasone TAB*] 5 mg PO DAILY 11/06/17 [History Confirmed 11/06] PMH/Surg Hx/FS Hx/Imm Hx Endocrine/Hematology History: Reports: Hx Anticoagulant Therapy, Other Endocrine /Hematological Disorders - Pt reports Hx of Rheumatoid arthritis for two years, then dismissed Cardiovascular History: Reports: Hx Atrial Fibrillation, Hx Congestive Heart Failure, Hx Hypertension Respiratory History: Reports: Hx Pneumonia - 5 years ago Denies: Hx Asthma, Hx Chronic Obstructive Pulmonary Disease (COPD) GI History: Reports: Hx Gastroesophageal Reflux Disease History: Reports: Other Problems/Disorders - BPH Musculoskeletal History: Reports: Hx Arthritis, Hx Orthopedic Injury - R ankle Sensory History: Reports: Hx Contacts or Glasses, Hx Glaucoma Denies: Hx Hearing Aid Opthamlomology History: Reports: Hx Contacts or Glasses, Hx Glaucoma - Surgical History Surgery Procedure, Year, and Place: "Kidney lesions removed when I was very young", bilateral carpal tunnel, arthroscopy, tonsillectomy, dental surgeries Hx Anesthesia Reactions: No Infectious Disease History: No Infectious Disease History: Denies: Hx of Known/Suspected MRSA, Traveled Outside the [place] in Last 30 Days - Family History Known Family History: Positive: None Family History: pt denies significant FHx - Social History Alcohol Use: None Substance Use Type: Reports: None Smoking Status (MU): Never Smoked Tobacco Review of Systems Constitutional: Negative Eyes: Negative ENT: Negative Cardiovascular: Negative Respiratory: Negative Gastrointestinal: Other Genitourinary: Negative Musculoskeletal: Negative Skin: Negative Neurological: Negative Psychological: Normal All Other Systems Reviewed And Are Negative: Yes Physical Exam Triage Information Reviewed: Yes Vital Signs On Initial Exam: Initial Vitals Temp Pulse Resp BP Pulse Ox 97.8 F 85 16 145/75 100 11/06/17 15:23 11/06/17 15:23 11/06/17 15:23 11/06/17 15:23 11/06/17 15:23 Vital Signs Reviewed: Yes Appearance: Positive: Well-Appearing Skin: Positive: Warm Head/Face: Positive: Normal Head/Face Inspection Eyes: Positive: Normal Neck: Positive: Supple Respiratory/Lung Sounds: Positive: Clear to Auscultation Cardiovascular: Positive: Normal Abdomen Description: Positive: Nontender Musculoskeletal: Positive: Normal Neurological: Positive: Normal Psychiatric: Positive: Normal AVPU Assessment: Alert - [place] Coma Scale Best Eye Response: 4 - Spontaneous Best Motor Response: 6 - Obeys Commands Best Verbal Response: 5 - Oriented Coma Scale Total: 15 Diagnostics - Vital Signs Vital Signs Temp Pulse Resp BP Pulse Ox 11/06/17 17:40 98.1 F 82 146/70 99 11/06/17 15:23 97.8 F 85 16 145/75 100 - Laboratory Result Diagrams: 11/06/17 18:41 11/06/17 18:41 Lab Statement: Any lab studies that have been ordered have been reviewed, and results considered in the medical decision making process. - EKG 1 Cardiac Rate: NL EKG Rhythm: Sinus Rhythm ST Segment: Non-Specific Ectopy: None GIGU Course/Dx - Course Course Of Treatment: Patient sent to the ED by her primary care for heme positive stool. Patient states he's been having dark tarry stools 1 week, with some notable decrease in energy in the past 2 days. Denies any other symptoms or pain. Denies trauma, fever, cough, sore throat, CP, SOB, N/V/D, abdominal pain, change in urinary BM. No prior history of GI bleed. Also states he was orthostatic positive at primary care. Last colonoscopy 2010. Patient on Xarelto. Medical history is CHF, HTN, aortic valve replacement, A. fib, arthritis. Blood type A positive. Admission arranged through PCP. Vital signs stable and within normal limits. Hemoglobin 10.8. Stool was heme positive at primary care. Visually positive for blood. Hemoccult negative here in the ED. - Diagnoses Provider Diagnoses: GI bleed Discharge - Sign-Out/Discharge Documenting (check all that apply): Patient Departure - Discharge Plan Condition: Stable Disposition: ADMITTED TO [facility] - Billing Disposition and Condition Condition: STABLE Disposition: Admitted to [facility]
[2017-11-06 18:53] LABS: ABS Basophils 0.1 10^3/ul (0-0.2); ABS Eosinophils 0.1 10^3/ul (0-0.6); ABS Monocytes 0.8 10^3/ul (0-0.8); ABS Neutrophils 6.6 10^3/ul (1.5-7.7); ABS Nucleated RBC 0 10^3/ul; Eosinophil % 1.1 % (0-6); Hematocrit 31 % (42-52); Hemoglobin 10.8 g/dl (14.0-18.0); Lymphocyte % 11.3 % (25-47); Mean Corpuscular HGB Conc 34 g/dl (31-36); Mean Corpuscular Hemoglobin 36 pg (27-31); Mean Corpuscular Volume 104 fL (80-94); Mean Platelet Volume 6.9 um3 (7.4-10.4); Nucleated Red Blood Cells % 0; Platelet Count 143 10^3/ul (150-450); Red Blood Count 3.02 10^6/ul (4.00-5.40); Red Cell Distribution Width 14 % (10.5-15); White Blood Count 8.5 10^3/ul (3.5-10.8)
[2017-11-06 19:03] LABS: INR 1.08 (0.77-1.02)
[2017-11-06 19:07] LABS: EGFR Non-African American 76.5 (>60)
[2017-11-06] MEDS ORDERED: Ondansetron INJ* 2 MG/ML VIAL IV PRN (19:40)
[2017-11-06] MEDS ORDERED: Pantoprazole IV* 40 MG IV ONE (19:40)
[2017-11-06] MEDS ORDERED: NS 0.9% 1000 ML* 1,000 ML IV SCH (19:45)
[2017-11-06] MEDS: Pantoprazole IV* 80 MG in NS 0.9% 250 ML* 250 ML IVPB SCH (21:29)
--- NOTE | 2017-11-06 21:29 | HP ---
CC: Dr. Ignacio * HISTORY AND PHYSICAL: DATE OF ADMISSION: 11/06/17 PRIMARY CARE PROVIDER: Dr. Ignacio. CHIEF COMPLAINT: Black stools. HISTORY OF PRESENT ILLNESS: Mr. Rodríguez is an 87-year-old male with history of AFib, on Xarelto, who saw Dr. Ignacio on the day of admission with complaints of peanut butter textured stool that was very dark. She performed a stool guaiac in her office that was positive. The patient was referred to the emergency room for evaluation and probable admission. The patient states that the stools have been abnormal for approximately one week. He states that over the last couple of days, he has noted some increased fatigue. He denies any lightheadedness or dizziness. He denies any chest pain or shortness of breath. He denies any use of aspirin or NSAIDs, but he does take prednisone chronically. Additionally, he is on the Xarelto again for atrial fibrillation. PAST MEDICAL HISTORY: 1. Atrial fibrillation. 2. Aortic stenosis, status post bioprosthetic aortic valve replacement. 3. OA. 4. Hypertension. PAST SURGICAL HISTORY: 1. Right total hip replacement, status post mechanical fall in 2017. 2. Kidney surgery in the distant past. MEDICATIONS: 1. PreserVision AREDS 2 one cap p.o. b.i.d. 2. Potassium chloride 10 mEq p.o. daily. 3. Hydroxychloroquine 400 mg p.o. daily. 4. Doxycycline 100 mg p.o. daily p.r.n. dental appointments. 5. Prednisone 5 mg p.o. daily. 6. Sotalol 40 mg p.o. twice daily. 7. Lasix 20 mg p.o. daily. 8. Xalatan one drop to both eyes q.h.s. 9. Diltiazem CD 240 mg p.o. daily. 10. Xarelto 15 mg p.o. daily. ALLERGIES: TETRACYCLINE. FAMILY HISTORY: There is no family history of coronary artery disease, diabetes or cancer within his parents. The patient has two daughters, both of which have diabetes. SOCIAL HISTORY: The patient is a nonsmoker. He drinks alcohol on occasion. 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 He is . He has four children. He indicates that his son Bakari is his healthcare proxy. REVIEW OF SYSTEMS: A complete 11-system review of systems is obtained. Pertinent positives and negatives are as per HPI and otherwise negative. PHYSICAL EXAMINATION GENERAL: The patient is a well-developed, elderly but relatively robust- appearing male sitting in stretcher, no acute distress. VITAL SIGNS: Blood pressure 159/82, pulse 81, respirations 16, temperature 97.8 , O2 sat 97% on room air. HEENT: Pupils are equal and round. Extraocular muscles are intact. Oropharynx is clear. Oral mucosa is moist. There is no submandibular, cervical or supraclavicular adenopathy. Thyroid is not enlarged. No thyroid nodules are noted. PULMONARY: Lungs are clear to auscultation bilaterally. CARDIAC: Normal S1, S2. Regular rate and rhythm. I did not appreciate any murmurs. There is 1+ bilateral lower extremity pitting edema. ABDOMEN: Bowel sounds present. Abdomen is soft, nontender, nondistended. MUSCULOSKELETAL: There is no cyanosis or clubbing of the digits. There is full active range of motion of all four extremities. SKIN: Warm and dry. There are no rashes. NEUROLOGIC: Cranial nerves II through XII are grossly intact. Sensation is intact to light touch throughout. Strength is 5/5 and symmetric in both upper and lower extremities bilaterally. PSYCH: The patient is alert and oriented x3. Affect appears appropriate. LABORATORY DATA: WBC 8.5, hemoglobin 10.8, hematocrit 31, platelets 143, INR 1.08. Sodium 130, potassium 4.4, chloride 94, CO2 of 28, BUN 18, creatinine 0.93 , glucose 110, calcium 9.1, bilirubin 0.9, AST 26, ALT 16, alk-phos 43, CRP 2.38 , albumin 3.8. EKG reveals normal sinus rhythm without any acute ST-T wave abnormalities. ASSESSMENT AND PLAN: Mr. Rodríguez is an 87-year-old male with history of atrial fibrillation, on Xarelto as well as arthritis, on chronic prednisone, who presents to the emergency room with complaints of very black stools from his primary care provider's office where he tested positive for blood within his stool. 1. Possible upper gastrointestinal bleed: The patient's hemoglobin is significantly reduced from his last check in August 2017, where his hemoglobin was 15.8. Currently, it is 10.8. This seems like this would be an upper GI bleed given the very dark stool; however, his BUN is not elevated. At this point, the patient received Protonix 80 mg IV push x1 followed by a Protonix drip. I have spoken with Dr. Ghosh, who will see the patient in consultation from GI. The patient for now will be on clear liquids for possible EGD tomorrow. The patient's Xarelto will obviously be held at this point. I will continue his prednisone for now, however. 2. Atrial fibrillation: The patient's heart rate is controlled at this point. He will continue on his sotalol and diltiazem. His Xarelto again is going to be held. 3. Hypertension: The patient's blood pressure is under decent control on his usual dose of Xarelto. This will be monitored. 4. DVT prophylaxis: According to the Adult Thrombosis Prophylaxis Risk Factor Assessment Guide, the patient has a total risk factor score of 5 making him high risk. SCDs will be utilized as DVT prophylaxis as the patient may have a GI bleed. 5. Code status: Full. TIME SPENT: Sixty five minutes were spent admitting this patient, of which greater than half of it was spent [id number] with the patient reviewing his history and performing a physical exam. [id number]/[facility] #: [id number] MTDD
[2017-11-06 23:23] LABS: Hematocrit 28 % (42-52); Hemoglobin 9.6 g/dl (14.0-18.0)
[2017-11-07 06:36] LABS: Hematocrit 28 % (42-52); Hemoglobin 9.9 g/dl (14.0-18.0); Mean Corpuscular HGB Conc 36 g/dl (31-36); Mean Corpuscular Hemoglobin 37 pg (27-31); Mean Corpuscular Volume 104 fL (80-94); Mean Platelet Volume 6.6 um3 (7.4-10.4); Platelet Count 104 10^3/ul (150-450); Red Blood Count 2.69 10^6/ul (4.00-5.40); Red Cell Distribution Width 13 % (10.5-15); White Blood Count 5.9 10^3/ul (3.5-10.8)
[2017-11-07 06:59] LABS: EGFR Non-African American 95.1 (>60)
[2017-11-07] MEDS: Pantoprazole IV* 80 MG in NS 0.9% 250 ML* 250 ML IVPB SCH (08:23)
[2017-11-07] MEDS ORDERED: predniSONE TAB* 5 MG PO SCH (09:00)
[2017-11-07] MEDS ORDERED: Diltiazem CD CAP* 240 MG PO SCH (09:00)
[2017-11-07] MEDS ORDERED: Sotalol TAB* 80 MG PO SCH (09:00)
[2017-11-07] MEDS ORDERED: Hydroxychloroquine TAB* 200 MG PO SCH (09:00)
[2017-11-07] MEDS ORDERED: Midazolam* 1 MG/ML 10 ML VIAL (10 MG) ONE (12:16)
[2017-11-07] MEDS ORDERED: fentaNYL* 50 MCG/ML 2 ML VIAL (100 MCG VIAL) ONE (12:16)
--- NOTE | 2017-11-07 15:39 | CONS ---
CC: Dr. Ignacio; Dr. Elizabeth; Dr. Marta Ghosh GASTROENTEROLOGY CONSULTATION: DATE OF CONSULT: 11/07/17 PRIMARY CARE PROVIDER: Dr. Ignacio. HOSPITAL PROVIDER: Dr. Elizabeth. REASON FOR CONSULTATION: Melena. HISTORY OF PRESENT ILLNESS: Mr. Rodríguez is a very pleasant 87-year-old gentleman with a history of atrial fibrillation, on Xarelto and aortic stenosis , status post bioprosthetic aortic valve replacement and hypertension along with osteoarthritis, on prednisone therapy, who presented with complaints of peanut butter textured stool that was very dark in nature. He was noted to be Hemoccult positive in his primary care doctor's office and was referred to the emergency room for possible admission. He has been noticing this textured stool for approximately 1 week. Over the last several days, he has also noticed some increased fatigue, but he denies any chest pain, shortness of breath. He denies NSAID use; however, he is on chronic prednisone for his arthritic pain as well as Xarelto for his atrial fibrillation. He has been on higher doses of prednisone long-term previously, but recently was decreased to 5 mg daily. He currently denies any abdominal pain, hematemesis, nausea, vomiting. He denies bright red blood per rectum. He does believe he may have had an upper endoscopy many years ago but does not remember the results. His last colonoscopy was less than 10 years ago and states was normal at that time. Gastroenterology was consulted for further evaluation and possible endoscopy. PAST MEDICAL HISTORY: 1. Atrial fibrillation, on Xarelto. 2. Aortic stenosis, status post bioprosthetic aortic valve replacement. 3. Osteoarthritis on long-term prednisone. 4. Hypertension. PAST SURGICAL HISTORY: 1. Right total knee replacement, status post mechanical fall in 2017. 2. Kidney surgery in the distant past. 3. Colonoscopy less than 10 years ago. HOME MEDICATIONS: 1. PreserVision AREDS. 2. Potassium chloride. 3. Hydroxychloroquine. 4. Doxycycline. 5. Prednisone. 6. Sotalol. 7. Lasix. 8. Xalatan drops. 9. Diltiazem. 10. Xarelto. ALLERGIES: To TETRACYCLINE. FAMILY HISTORY: No history of gastrointestinal malignancies that the patient can recall. SOCIAL HISTORY: He denies any tobacco use. Admits to occasional alcohol use. No illicit drug use. 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 REVIEW OF SYSTEMS: Review of systems on a 14-point scale has been reviewed. All pertinent positives and negatives have been noted above in the HPI. PHYSICAL EXAM: Vital Signs: Temperature 98.6, pulse 76, respirations 16, blood pressure 136/70. Generally, the patient is alert and oriented x3, in no acute distress, well nourished. HEENT: Normocephalic, atraumatic. Extraocular muscles intact. Anicteric sclerae bilaterally. Cardiovascular Exam : Regular rate and rhythm. Pulmonary Exam: Clear to auscultation bilaterally. Abdomen: Positive bowel sounds. Soft, nontender, nondistended. No rebound, guarding, or rigidity. Extremities: No clubbing, cyanosis, or edema. Neurological Exam: No gross focal deficits are appreciated. DIAGNOSTIC STUDIES/LAB DATA: WBC is 5.9, hemoglobin 9.9, hematocrit 28, platelets 104. INR 1.08. Sodium 134, potassium 3.8, chloride 100, CO2 of 28, anion gap 6, BUN 14, creatinine 0.77, calcium 8.3. Iron 47, TIBC 263, percent saturation 18, transferrin 188, ferritin 52.1. Total bilirubin 0.90, AST 26, ALT 16, alkaline phosphatase 43. CRP 2.3. Total protein 6.2, albumin 3.8. ASSESSMENT AND PLAN: Mr. Rodríguez is a very pleasant 87-year-old gentleman with a history of atrial fibrillation, on Xarelto, aortic stenosis, status post bioprosthetic valve replacement, osteoarthritis on chronic prednisone and hypertension, who presented to [facility] with complaints of melena and fatigue. He was seen in his primary care doctor's office yesterday and was noted to have a positive guaiac, thus he was referred to the emergency room for further evaluation and admission. The patient is currently hemodynamically stable. His hemoglobin is 9.9 today. He has not had any rectal bleeding today. He is on a Protonix drip for possible peptic ulcer. Given his history of long-term Xarelto and prednisone therapy, he could very well have a peptic ulcer. We will hold the Xarelto for now and plan on an emergent upper endoscopy today. He will maintain n.p.o. status. We will continue to monitor the patient's hemoglobin. The patient is in agreement with an upper endoscopy. Risks and benefits were discussed. Further recommendations will be provided as the patient's clinical course progresses. Case was discussed with Dr. Elizabeth last night on admission. [id number]/[facility] #: [id number] DAVID
[2017-11-07 17:23] VITALS: BP 104/57
--- NOTE | 2017-11-07 17:52 | PRO ---
CC: Dr. Agee; Dr. Marta Ghosh GASTROENTEROLOGY OPERATIVE REPORT: DATE OF PROCEDURE: 11/07/17 OPERATIVE PROCEDURE: Esophagogastroduodenoscopy to third portion of duodenum. CUTTER GRINDER: Marta Ghosh DO ANESTHESIA: 1. Midazolam 6 mg IV. 2. Fentanyl 50 mcg IV. HISTORY OF PRESENT ILLNESS: Dawson is a very pleasant 87-year-old gentleman with a significant medical history of aortic valve stenosis, status post bioprosthetic valve replacement, atrial fibrillation on Xarelto and prednisone therapy for arthritis who presents with complaints of melena and acute blood loss anemia. PREOPERATIVE DIAGNOSES: 1. Melena. 2. Anemia. 3. In the setting of Xarelto and prednisone therapy. POSTOPERATIVE DIAGNOSES: 1. 3-mm cratered healing nonbleeding duodenal ulcer in the first portion of the duodenum. 2. Mild antral gastritis with CLOtest to rule out Helicobacter pylori. 3. Tortuous distal esophagus. 4. No active bleeding seen. RECOMMENDATIONS: 1. We will follow up with CLOtest to rule out Helicobacter pylori. 2. Findings discussed with Dr. Agee as well as the patient's son, Brody, over the phone. 3. We will discharge the patient home on PPI therapy twice daily for 6 weeks, then decrease to once daily. 4. Recommend Xarelto to be restarted in 3 to 5 days if possible. 5. Follow-up in our office in 2 weeks. DESCRIPTION OF PROCEDURE: Esophagogastroduodenoscopy was explained in detail to the patient. The risks, benefits, complications, alternatives, possibilities of missed lesions were explained and understood. Complications included, but were not limited to, reaction to anesthesia, aspiration, increased risk of bleeding, infection and perforation. All questions were answered. The patient demonstrated understanding of the conversation. Informed consent was obtained. Next, the patient was brought to the endoscopy suite, placed in the left lateral recumbent position, where blood pressure, cardiac, and oxygen monitors were applied. The patient was found to be a fit candidate for moderate anesthesia. After adequate IV sedation was achieved, a bite-block was placed. Next, a standard adult Olympus endoscope was inserted per os under direct visualization to the first, second, and third portion of the duodenum. Careful examination of the duodenum revealed a 3-mm cratered duodenal ulcer in the duodenal sweep. This was nonbleeding and appears to be healing. No previous stigmata of bleeding. Further withdrawal of the endoscope into the gastric lumen revealed mild erythema in the antrum consistent with gastritis. A CLOtest was performed to rule out H. pylori. On retroflexion, the patient had a normal gastric cardia sling. The rest of the gastric lumen was normal appearing. Further withdrawal of the endoscope into the distal esophagus revealed a tortuous esophagus. The Z-line was noted to be at 40 cm from the incisors and was regular appearing. The rest of the tubular esophagus was normal appearing. Air was then removed from the patient. Endoscope was removed from the patient. The patient tolerated the procedure well. There were no immediate complications. After a period of observation, the patient was transferred back to the medical floor for further care. Thank you, Dr. Agee, for allowing us to participate in the care of your patient. If you should have any further questions or concerns, please do not hesitate to contact us. [id number]/[facility] #: [id number] DAVID
[2017-11-07] MEDS ORDERED: Latanoprost 0.005%* 2.5 ml BTL BOTH EYES SCH (18:00)
--- NOTE | 2017-11-08 10:17 | DS ---
DISCHARGE SUMMARY: DATE OF ADMISSION: 11/06/17 DATE OF DISCHARGE: 11/07/17 ADMITTING PROVIDER: Nadia Elizabeth DO ATTENDING PHYSICIAN: Ta Agee MD PRIMARY CARE PHYSICIAN: Kathy Ignacio MD CHIEF COMPLAINT: Peanut butter consistency darker stools and fatigue. PRINCIPAL DIAGNOSIS: Upper gastrointestinal bleed secondary to small duodenal ulcer in the setting of chronic Xarelto and prednisone use. HISTORY OF PRESENT ILLNESS: Cassius Rodríguez is an 87-year-old male with a past medical history of atrial fibrillation, on Xarelto; aortic stenosis, status post bioprosthetic aortic valve repair; osteoarthritis; hypertension; PMR, on Plaquenil and prednisone for the last year, who for approximately 1 week noticed peanut butter consistency dark brownish stools with occasional pito stool. He had a positive guaiac at primary care physician, Dr. Ignacio's office , and was referred for further evaluation. Please see H&P of Dr. Nadia Elizabeth for full details. His hemoglobin was noted to be 9.6, macrocytic (MCV 104 ), hematocrit 28, down from hemoglobin 15.6, hematocrit 44 in August 2017. GI physician, Dr. Marta Ghosh, was consulted who performed an EGD on hospital day #2, which demonstrated a small duodenal ulcer with no evidence of current bleeding. He had been started on a Protonix drip after IV Protonix load and Dr. Ghosh recommended b.i.d. PPI for the next 6 weeks, then daily, and then she was okay with him being discharged after the procedure given his hemodynamic stability. He had iron studies done with a iron level of 47, ferritin of 52, and iron sat of 18. He is being discharged with recommendation to follow up with his primary care provider to get the results of his CLOtest given some also areas of gastritis. He was also told to hold his Xarelto for 2 days. He should eventually follow up with Dr. Melgar, his hematology technician, for PMR to evaluate if he need to continue his prednisone dosing given the increased risk for GI bleeds and given his high CHADS2-VASc score, the consideration for continued chronic anticoagulation to prevent strokes. DISCHARGE MEDICATIONS: Include, 1. Diltiazem 240 mg p.o. daily. 2. Doxycycline 100 mg p.o. daily p.r.n. for dental procedures. 3. Lasix 20 mg once daily. 4. Plaquenil 400 mg p.o. daily. 5. Xalatan 1 drop both eyes q.p.m. 6. Pantoprazole 40 mg p.o. b.i.d. for 6 weeks, followed by 40 mg p.o. daily. 7. Potassium chloride 10 mEq p.o. daily. 8. Prednisone 5 mg p.o. daily. 9. Xarelto 15 mg p.o. daily (though held for the next 2 days). 10. Sotalol 40 mg p.o. b.i.d. 11. PreserVision AREDS 2 Softgel 1 capsule p.o. b.i.d. DISCHARGE DIET: Heart healthy, unchanged. ACTIVITY LEVEL: No restrictions. FOLLOWUP: Please follow up with Dr. Kathy Ignacio within 7 days of discharge to get CLOtest results. He should eventually follow up with Dr. Melgar to discuss his chronic prednisone use. He has been asked to hold his Xarelto for 2 days. Given his macrocytosis, the level of MCV 104, it would be reasonable to check folate and B12 levels as an outpatient as well. Also of note, he is on Plaquenil and the patient himself was not that clear on the indication, though possibly for PMR per his son. This, of course, also has potential side effects of agranulocytosis, thrombocytopenia, aplastic anemia, and the risks and benefits of this medication may need to be discussed as an outpatient with Dr. Melgar and primary care physician as well given his long-term need for anticoagulation. TIME SPENT ON DISCHARGE: 35 minutes. [id number]/[facility] #: [id number] DAVID
== END 2017-11-07 17:16 | disposition home or self-care (01) ==
LOC: ED 15:19 → INTOOBSV 19:40 → MED 19:40
PROVIDERS: ADMIT Hospitalist; ATTEND Internal Medicine
DX: K92.2 Gastrointestinal hemorrhage, unspecified (principal); K26.9 Duodenal ulcer, unspecified as acute or chronic, without hemorrhage or perforation; I48.91 Unspecified atrial fibrillation; Z79.01 Long term (current) use of anticoagulants; I35.0 Nonrheumatic aortic (valve) stenosis; Z95.2 Presence of prosthetic heart valve; I10 Essential (primary) hypertension; M19.91 Primary osteoarthritis, unspecified site; Z96.651 Presence of right artificial knee joint
CPT/HCPCS: 36415; 80048; 80053; 82272; 82728; 83540; 83550; 85014; 85018; 85025; 85027; 85610; 85730; 86140; 87077; 93005; 96365; 99156; 99157; 99284; A9270-GY; G0378; J2250; J3010; J7512